=== PATIENT | female | born 1960 | race Caucasian/White ===

== ENCOUNTER 2023-04-26 13:14 | Outpatient (OUT) | payer OTHER, SELFPAY ==
--- NOTE | 2023-04-26 13:17 | MM_ITS ---
Patient Name: STEFANIE ALARCON MR#: [id number] : 1960 Exam Date: 04/26/2023 Ordering Doctor: DR Baldemar Barger . RADIOLOGY REPORT PROCEDURE: MM TOMOSYNTHESIS SCREENING BI COMPARISON: MG MAMM SCREEN 3D BERNARDA CAD, 04/03/2021. MG MAMM SCREEN 3D BERNARDA CAD, 04/22/2022. INDICATIONS: Screening Calculator Name NCI Breast Cancer Risk Assessment Tool 5 Year Breast Cancer Risk 1.50% Lifetime Breast Cancer Risk 7.20% Personal Breast Cancer No Personal Ovarian Cancer No Treatments None Family Cancers Grandmother-maternal with ?melanoma cancer at age ~45. LOCATION: [facility] BREAST COMPOSITION: Heterogeneously dense,which may obscure small masses. FINDINGS: DIAGNOSTIC CATEGORY 1--NEGATIVE. NO CHANGE FROM COMPARISON ASSESSMENT. Scattered benign-appearing calcifications are present. RIGHT BREAST: No significant suspicious finding. LEFT BREAST: No significant suspicious finding. RECOMMENDATIONS: ROUTINE MAMMOGRAM AND CLINICAL EVALUATION IN 12 MONTHS. PLEASE NOTE: A NORMAL MAMMOGRAM DOES NOT EXCLUDE THE POSSIBILITY OF BREAST CANCER. A CLINICALLY SUSPICIOUS PALPABLE LUMP SHOULD BE BIOPSIED. Dictated by: Emmanuel Calderon MD on 04/26/2023 at 14:52 Approved by: Emmanuel Calderon MD on 04/26/2023 at 14:59
== END 2023-04-26 13:15 | disposition home or self-care (01) ==
LOC: MAMMO 13:14
PROVIDERS: Visit Provider Obstetrics & Gynecology
DX: Z12.31 Encounter for screening mammogram for malignant neoplasm of breast (principal); Z80.8 Family history of malignant neoplasm of other organs or systems
CPT/HCPCS: 77063; 77067

== ENCOUNTER 2023-07-28 20:13 | Outpatient (REF) | payer OTHER, SELFPAY ==
[2023-08-01 22:06] LABS: Age Gdln ACOG Testing Note (.); HPV Aptima Negative (Negative); IGP, Aptima HPV, rfx 16/18,45 Note (.)
== END 2023-07-28 20:14 | disposition home or self-care (01) ==
LOC: LAB 20:13
PROVIDERS: Visit Provider Obstetrics & Gynecology
DX: Z01.419 Encounter for gynecological examination (general) (routine) without abnormal findings (principal)
CPT/HCPCS: 87624; 88175

== ENCOUNTER 2024-04-26 06:55 | Outpatient (OUT) | payer OTHER, SELFPAY ==
--- NOTE | 2024-04-26 | MM_ITS ---
Patient Name: STEFANIE ALARCON MR#: [id number] : 1960 Exam Date: 04/26/2024 Ordering Doctor: DR Baldemar Barger . RADIOLOGY REPORT PROCEDURE: MM TOMOSYNTHESIS SCREENING BI COMPARISON: MM TOMOSYNTHESIS SCREENING BI, 04/26/2023. MG MAMM SCREEN 3D BERNARDA CAD, 04/22/2022. MG MAMM SCREEN 3D BERNARDA CAD, 04/03/2021. MG MAMM BERNARDA SCRN W CAD DIG, 10/18/2012. INDICATIONS: Screening for malignant neoplasm Calculator Name NCI Breast Cancer Risk Assessment Tool 5 Year Breast Cancer Risk 1.50% Lifetime Breast Cancer Risk 7.00% Personal Breast Cancer No Personal Ovarian Cancer No Treatments None Family Cancers Grandmother-maternal with ?melanoma cancer at age ~45. LOCATION: [facility] BREAST COMPOSITION: There are scattered areas of fibroglandular density. FINDINGS: DIAGNOSTIC CATEGORY 1--NEGATIVE. RIGHT BREAST: No significant suspicious finding. LEFT BREAST: No significant suspicious finding. RECOMMENDATIONS: ROUTINE MAMMOGRAM AND CLINICAL EVALUATION IN 12 MONTHS. PLEASE NOTE: A NORMAL MAMMOGRAM DOES NOT EXCLUDE THE POSSIBILITY OF BREAST CANCER. A CLINICALLY SUSPICIOUS PALPABLE LUMP SHOULD BE BIOPSIED. Dictated by: Nixon Simpson DO on 04/26/2024 at 14:01 Approved by: Nixon Simpson DO on 04/26/2024 at 14:02
--- OUTSIDE RECORDS SUMMARY | 2024-04-26 06:58 | XMS_ITS | CCD ---
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 Oswestry Score: 42 Lifting: Aggravating PM Oswestry Score Interpretation: 41% to 60% Severe Disability: Pain remains the main problem in this group but activities of daily living are affected. These patients require a detailed investigation. Lying: Aggravating Massage: Alleviating Pushing/Pulling: Aggravating Sitting: Alleviating Standing: Aggravating Walking: Aggravating Sensory impairment location: numbnesss and tingling in left mcclellan Pain since last visit: Improved Procedure 1: Radiofrequency Ablation Procedure Date 1: 08/05/23 Procedure Comments 1: Bilateral L4-5, L5-S1 radiofrequency ablation Pain Improvement 1: Significant (70-100% relief) Pain Improvement Comments 1: 80% relief x2 weeks in lower back Date Tens: current Frequency TENS: prn Effective TENS: minimal help-low back Comments TENS: home unit Date Chiropractor: hx Date PT: hx Date Injections: PRN Effective Injections: sig relief x2 weeks Comments Injections: Bilateral L4-5, L5-S1 radiofrequency ablation Date Surgery: 10/2022 Frequency Surgery: x1 Effective Surgery: right THR Comments Other: HEP-stretching Recent testing: No Loss of bladder/bowel: Denies Demeanor: Pleasant Distress: None Appearance: Appropriate Cognitive impairment: No Feels safe at home: Yes Suicidal/homicidal ideation: No Review of Systems A review of systems was conducted and noted to be negative to the patients presenting complaint unless delineated in HPI. Full details are available on form PM-82 completed by the patient and added to the record on today?s date Denies loss of control of bowel and bladder or saddle paresthesia. Denies suicidal ideation or plan Physical Exam Vitals & Measurements HR: 73 (Peripheral) RR: 16 BP: 145/94 HT: 173 cm General -Appears stated age. No apparent distress. Psychological - Normal mood and affect. HEENT - Normocephalic/Atrau matic Neurologic-alert and oriented x4 Respiratory - No obvious distress, No shortness of breath. Sacroiliac-tenderne ss to palpation is noted over the right sacroiliac joint. Kem's sign and thigh thrust are positive and do appear to be concordant with one of patient's main pain generators. Additional Vitals Repeat Systolic Blood Pressure: 142 mmHg High Repeat Diastolic Blood Pressure: 88 mmHg BP Position/Location: Sitting, Left arm BP Position/Location 2: Sitting, Right arm Assessment/Plan Low back pain Lumbosacral spondylosis Patient has chronic low back pain secondary to lumbosacral spondylosis. Patient reports improvement of lumbar pain following lumbar RFA but continues with residual low back pain consistent with sacroiliac joint pain Sacroiliac joint pain Debilitating lumbosacral pain, markedly impairing function with symptomatology that reproduces with Gaenslens maneuver as well as Sam's testing. For symptomatology that re-creates with a sacral iliac joint palpation their candidacy is formally established for a diagnostic and potentially therapeutic intervention. Patient will be scheduled for bilateral sacroiliac joint injection under fluoroscopic guidance and attempts to palliate low back pain Medic (more content not included)... Normal [facility] Pain Management Office/Clini c Noteon 06-14-2023 Pain Management Office/Clinic Note Chief Complaint neck & low back pain History of Present Illness Patient kindly referred to our office for evaluation regarding chronic low back pain. Patient does report some tingling in her left lateral calf. Patient lumbar spine MRI and x-ray December 2021 and was under the care of a pain specialist in [place]. Patient was seen for right hip pain and subsequently has underwent right total hip replacement 2022. Patient reports her low back pain is her most significant concern on today's encounter Patient has engaged in a 6 week course of provider directed, home based physiological therapies within the last 3 months. In addition, a six-week trial of activity modification has failed to give reprieve. Patient has also failed to respond optimally to oral analgesic regimen Opioid Risk Assessment Oswestry Disability Form AM Behavior: Same Family History of Substance Abuse: None PM Pain Intensity: The pain is very severe at the moment Day Progresses Behavior: Same Personal History of Substance Abuse: None PM Personal Care: I can look after myself without causing extra pain PM Behavior: Same Age Between 16 and 45: No PM Sitting: Pain prevents me from sitting more than 10 minutes Timing of onset: gradually History of Preadolescent Sexual Abuse: No PM Pain Lifting: Pain prevents me from lifting heavy weights, but I can manage light to medium weights if they are convieniently positioned Related injury/event: none Mental Health Condition: No PM Walking: Pain prevents me from walking more than 1 mile Details of onset: Pain for years Depression: No PM Standing: Pain prevents me from standing for more than 10 minutes Past treatment: hx PThx chiropractorMDP,Tra madl, Celebrex-no helpFlexeril-just startedNabumetone-h elped for a little bit then stopped helpingPercocet-hel ped Total Opioid Risk Score: 0 PM Sleeping: Because of pain I have less than 4 hours of sleep Pain location and laterality: neck & low back pain Total Score Risk Category: Low risk PM Sex Life: My sex life is normal and causes no pain/NA Pain quality: Aching, Dull, Sharp PM Social Life: My social life is normal and give me no extra pain Pain Pattern: Constant PM Traveling: Pain is bad, but I manage journeys over 2 hours Pain rate at rest: 8 PM Oswestry Score: 42 Pain rate with activity: 10 PM Oswestry Score Interpretation: 41% to 60% Severe Disability: Pain remains the main problem in this group but activities of daily living are affected. These patients require a detailed investigation. Bending: Aggravating Heat: Alleviating Lifting: Aggravating Lying: Aggravating Pushing/Pulling: Aggravating Sitting: Alleviating Standing: Aggravating Walking: Aggravating Sensory impairment location: tingling at times in left lower leg Date Tens: current Frequency TENS: prn Effective TENS: minimal help-low back Date Chiropractor: hx Date PT: hx Comments PT: HEP-stretching Date Injections: hx Frequency Injections: x3 Effective Injections: no help Comments Injections: PM De La Torre-Dr Reina & Dr. Mosquera Date Surgery: 10/2022 Frequency Surgery: x1 Effective Surgery: right THR Recent testing: No Loss of bladder/bowel: Denies Demeanor: Pleasant Distress: None Appearance: Appropriate Cognitive impairment: No Feels safe at home: Yes Suicidal/homicidal ideation: No Family History of Substance Abuse: None Personal History of Substance Abuse: None Age Between 16 and 45: No History of Preadolescent Sexual Abuse: No Mental Health Condition: No Depression: No Total Opioid Risk Score: 0 Total Score Risk Category: Low risk Review of Systems A review of systems was conducted and noted to be negative to the patients presenting complaint unless delineated in HPI. Full details are available on form PM-82 completed by the patient and added to the record on today?s date Denies loss of control of bowel and bladder or saddle paresthesia. Denies suicidal ideation or plan Physical Exam Vitals & Measurements HR: 82 (Peripheral) RR: 16 BP: 148/91 HT: 172 cm General -Appears stated age. No apparent distress. Psychological - Normal mood and affect. HEENT - Normocephalic/Atrau matic Neurologic-alert and oriented x4 Respiratory - No obvious distress, No shortness of breath. Focus exam- is able to transition from sitting to standing without difficulty walks with a nonantalgic gait. Motor strength 5/5 in all areas assessed in the bilateral lower extremities. Sensory testing intact L1 through S1. Patient does report an increase in low back pain with lumbar facet loading maneuvers, concordant with pain symptoms, which localizes approximate L3 4, L4 5 and L5-S1 bilaterally Additional Vitals BP Position/Location: Sitting Assessment/Plan Low back pain Lumbosacral spondylosis Evaluated today for ongoing pain secondary to lumbar spondylosis. Patient's pain has failed to respond to conservative measures including life-style mo (more content not included)... Normal [facility] CT ABDOMEN PELVIS WO CONTRAS Ton 11-01-2022 CT ABDOMEN PELVIS WO CONTRAST EXAMINATION: STONE PROTOCOL CT OF THE ABDOMEN AND PELVIS 10/31/2022 7:24 pm TECHNIQUE: CT of the abdomen and pelvis was performed without the administration of intravenous contrast. Multiplanar reformatted images are provided for review. Automated exposure control, iterative reconstruction, and/or weight based adjustment of the mA/kV was utilized to reduce the radiation dose to as low as reasonably achievable. COMPARISON: None HISTORY: ORDERING SYSTEM PROVIDED HISTORY: Rule out right kidney stone TECHNOLOGIST PROVIDED HISTORY: Rule out right kidney stone Decision Support Exception - unselect if not a suspected or confirmed emergency medical condition->Emergenc y Medical Condition (MA) FINDINGS: LOWER CHEST: Visualized portion of the lower chest demonstrates no acute abnormality. KIDNEYS AND URINARY TRACT: Right obstructive uropathy with right hydronephrosis, perinephric stranding and right hydroureter leading to a distal right ureteric stone measuring 5 mm. Kidney demonstrates no acute abnormality. ORGANS: Visualized portions of the unenhanced liver, spleen, pancreas, and adrenal glands demonstrate no acute abnormality. Status post cholecystectomy. GI/BOWEL: No bowel obstruction. No evidence of acute appendicitis. Mild constipation. PELVIS: The bladder and pelvic organs are unremarkable. Postsurgical changes in the region of the right hip. There is some soft tissue fluid with some air bubbles. PERITONEUM/RETROPER ITONEUM: No lymphadenopathy is noted. BONES/SOFT TISSUES: Status post right hip replacement which appears well aligned. Postoperative soft tissue fluid with air needs to be monitored for possible infection. IMPRESSION: 1. Right obstructive uropathy related to a 5 mm stone at the right UV junction. 2. Status post right hip surgery with soft tissue fluid and air bubbles which may be postsurgical however, monitoring for possible infection should be considered. 3. Status post cholecystectomy. No acute gastrointestinal abnormality. Mild constipation. Interpreted by: Kendra Choi MD Signed by: Kendra Choi MD 10/31/22 Final result Normal [facility] Basic Metabolic Profon 10-31 Anion gap [Moles/Vol] 10 mmol/L Normal 9- [facility] Comment on above: Performed By: #### C DP, BMP #### [facility] [address] [place] [address] Sports Medicine Coordinator: Juan Freitas MD BUN/CRE Ratio 20 Normal 9- [facility] Comment on above: Performed By: #### C DP, BMP #### [facility] [address] [place], [place] [id number] Sports Medicine Coordinator: Juan Freitas MD Calcium [Mass/Vol] 9.4 mg/dL Normal 8.6-10.4 [facility] Comment on above: Performed By: #### C DP, BMP #### [facility] [address] [place], [place] [id number] Sports Medicine Coordinator: Juan Freitas MD Chloride [Moles/Vol] 103 mmol/L Normal 98-107 [facility] Comment on above: Performed By: #### C DP, BMP #### [facility] [address] [place], [place] [id number] Sports Medicine Coordinator: Juan Freitas MD CO2 [Moles/Vol] 22 mmol/L Normal 20-31 [facility] Comment on above: Performed By: #### C DP, BMP #### [facility] [address] [place] [address] Sports Medicine Coordinator: Juan Freitas MD Creatinine [Mass/Vol] 0.8 mg/dL Normal 0.5-0.9 [facility] Comment on above: Performed By: #### C DP, BMP #### [facility] [address] [place] [address] Sports Medicine Coordinator: Juan Freitas MD GFR/1.73 sq M.predicted among non-blacks MDRD (S/P/Bld) [Vol rate/Area] mL/min/{1.73_m2} Normal >60 [facility] Comment on above: Result Comment: These results are not intended for use in patients <18 years of age. eGFR results are calculated without a race factor using the 2020 CKD-EPI equation. Careful clinical correlation is recommended, particularly when comparing to results calculated using previous equations. The CKD-EPI equation is less accurate in patients with extremes of muscle mass, extra-renal metabolism of creatine, excessive creatine ingestion, or following therapy that affects renal tubular secretion. Performed By: #### C DP, BMP #### [facility] [address] [place] [address] Sports Medicine Coordinator: Juan Freitas MD Glucose [Mass/Vol] 154 mg/dL High 70-99 [facility] Comment on above: Performed By: #### C DP, BMP #### [facility] [address] [place] [address] Sports Medicine Coordinator: Juan Freitas MD Potassium [Moles/Vol] 4.4 mmol/L Normal 3.7-5.3 [facility] Comment on above: Performed By: #### C DP, BMP #### [facility] [address] [place] [address] Sports Medicine Coordinator: Juan Freitas MD Sodium [Moles/Vol] 135 mmol/L Normal 135-144 [facility] Comment on above: Performed By: #### C DP, BMP #### [facility] [address] [place] [address] Sports Medicine Coordinator: Juan Freitas MD Urea nitrogen [Mass/Vol] 16 mg/dL Normal 8-23 [facility] Comment on above: Performed By: #### C DP, BMP #### [facility] [address] [place], [place] [address] Sports Medicine Coordinator: Juan Freitas MD CBC with Diffon 10-31-2022 Abs. Basophil <0.03 Normal 0.00-0.20 [facility] Comment on above: Performed By: #### C DP, BMP #### [facility] [address] [place] [address] Sports Medicine Coordinator: Juan Freitas MD Abs.Imm.Granulocyte 0.04 k/uL Normal 0.00-0.30 [facility] Comment on above: Performed By: #### C DP, BMP #### [facility] [address] [place] [address] Sports Medicine Coordinator: Juan Freitas MD Abs.Neutrophil (Seg) 5.50 k/uL Normal 1.50-8.10 [facility] Comment on above: Performed By: #### C DP, BMP #### [facility] [address] [place] [address] Sports Medicine Coordinator: Juan Freitas MD Basophils/100 WBC (Bld) 0 % Normal 0-2 [facility] Comment on above: Performed By: #### C DP, BMP #### [address] [place], [place] [address] Sports Medicine Coordinator: Juan Freitas MD Eosinophils (Bld) [#/Vol] 0.04 10*3/uL Normal 0.00-0.44 [facility] Comment on above: Performed By: #### C DP, BMP #### [facility] [address] [place], [facility]83 Sports Medicine Coordinator: Juan Freitas MD Eosinophils/100 WBC (Bld) 1 % Normal 1-4 [facility] Comment on above: Performed By: #### C DP, BMP #### [facility] [address] [place], [facility]83 Sports Medicine Coordinator: Juan Freitas MD Erythrocyte distribution width (RBC) [Ratio] 12.4 % Normal 11.8-14.4 [facility] Comment on above: Performed By: #### C DP, BMP #### [address] [place], [place] [id number] Sports Medicine Coordinator: Juan Freitas MD Hematocrit (Bld) [Volume fraction] 32.6 % Low 36.3-47.1 [facility] Comment on above: Performed By: #### C DP, BMP #### [address] [place], [facility]83 Sports Medicine Coordinator: Juan Freitas MD Hemoglobin (Bld) [Mass/Vol] 10.9 g/dL Low 11.9-15.1 [facility] Comment on above: Performed By: #### C DP, BMP #### [address] [place], [facility]83 Sports Medicine Coordinator: Juan Freitas MD Immature granulocytes/100 WBC (Bld) 1 % High 0 [facility] Comment on above: Performed By: #### C DP, BMP #### [address] [place], [place] [address] Sports Medicine Coordinator: Juan Freitas MD Lymphocytes (Bld) [#/Vol] 0.96 10*3/uL Low 1.10-3.70 [facility] Comment on above: Performed By: #### C DP, BMP #### [facility] [address] [place] [address] [place], [facility]83 Sports Medicine Coordinator: Juan Freitas MD Lymphocytes/100 WBC (Bld) 14 % Low 24-43 [facility] Comment on above: Performed By: #### C DP, BMP #### [address] [place] [address] Sports Medicine Coordinator: Juan Freitas MD MCH (RBC) [Entitic mass] 30.1 pg Normal 25.2-33.5 [facility] Comment on above: Performed By: #### C DP, BMP #### [facility] [address] [place], [place] [id number] Sports Medicine Coordinator: Juan Freitas MD MCHC (RBC) [Mass/Vol] 33.4 g/dL Normal 28.4-34.8 [facility] Comment on above: Performed By: #### C DP, BMP #### [facility] [address] [place], [facility]83 Sports Medicine Coordinator: Juan Freitas MD MCV (RBC) [Entitic vol] 90.1 fL Normal 82.6-102.9 [facility] Comment on above: Performed By: #### C DP, BMP #### [address] [place] [id number] Sports Medicine Coordinator: Juan Freitas MD Monocytes (Bld) [#/Vol] 0.43 10*3/uL Normal 0.10-1.20 [facility] Comment on above: Performed By: #### C DP, BMP #### [address] [place], [place] [address] Sports Medicine Coordinator: Juan Freitas MD Monocytes/100 WBC (Bld) 6 % Normal 3-12 [facility] Comment on above: Performed By: #### C DP, BMP #### [address] [place], [place] [address] Sports Medicine Coordinator: Juan Freitas MD Neutrophil (Seg) 78 % High 36-65 [facility] Comment on above: Performed By: #### C DP, BMP #### [facility] [address] [place] [id number] Sports Medicine Coordinator: Juan Freitas MD NRBC Automated 0.0 per 100 WBC Normal 0.0 [facility] Comment on above: Performed By: #### C DP, BMP #### [facility] [address] [place], [facility]83 Sports Medicine Coordinator: Juan Freitas MD Platelet mean volume (Bld) [Entitic vol] 9.2 fL Normal 8.1-13.5 [facility] Comment on above: Performed By: #### C DP, BMP #### [facility] [address] [place], [place] [id number] Sports Medicine Coordinator: Juan Freitas MD Platelets (Bld) [#/Vol] 314 10*3/uL Normal 138-453 [facility] Comment on above: Performed By: #### C DP, BMP #### [facility] [address] [place], [place] [id number] Sports Medicine Coordinator: Juan Freitas MD RBC (Bld) [#/Vol] 3.62 10*6/uL Low 3.95-5.11 [facility] Comment on above: Performed By: #### C DP, BMP #### [facility] [address] [place], [facility]83 Sports Medicine Coordinator: Juan Freitas MD WBC (Bld) [#/Vol] 7.0 10*3/uL Normal 3.5-11.3 [facility] Comment on above: Performed By: #### C DP, BMP #### [address] [place], [place] [id number] Sports Medicine Coordinator: Juan Freitas MD Urinalysis w/ Microon 2022 Bilirubin, SemiQt,Ur Negative Normal NEG [facility] Comment on above: Performed By: #### U AMIC #### [facility] [address] [place], [place] [address] Sports Medicine Coordinator: Juan Freitas MD Blood, Urine TRACE Abnormal NEG [facility] Comment on above: Performed By: #### U AMIC #### [facility] [address] [place], [place] [id number] Sports Medicine Coordinator: Juan Freitas MD Clarity (U) Clear Normal CLEAR [facility] Comment on above: Performed By: #### U AMIC #### [facility] [address] [place], [place] [id number] Sports Medicine Coordinator: Juan Freitas MD Color (U) Yellow Normal YEL [facility] Comment on above: Performed By: #### U AMIC #### [facility] [address] [place], [place] [address] Sports Medicine Coordinator: Juan Freitas MD Epithelial cells LM Ql (Urine sed) None Normal 0-25 [facility] Comment on above: Performed By: #### U AMIC #### [facility] [address] [place], [place] [id number] Sports Medicine Coordinator: Juan Freitas MD Glucose Ql (U) Negative Normal NEG [facility] Comment on above: Performed By: #### U AMIC #### [facility] [address] [place] [address] [place], [place] [id number] Sports Medicine Coordinator: Juan Freitas MD Ketones Ql (U) Negative Normal NEG [facility] Comment on above: Performed By: #### U AMIC #### [facility] [address] [place] [address] Dr[place], [place] [id number] Sports Medicine Coordinator: Juan Freitas MD Leukocyte esterase Test strip Ql (U) Negative Normal NEG [facility] Comment on above: Performed By: #### U AMIC #### [facility] [address] [place] [address] Dr[place], [place] [id number] Sports Medicine Coordinator: Juan Freitas MD Nitrite,Ur Negative Normal NEG [facility] Comment on above: Performed By: #### U AMIC #### [facility] [address] [place] [address] [place] [address] Sports Medicine Coordinator: Juan Freitas MD PH,Ur 7.0 Normal 5.0-9.0 [facility] Comment on above: Performed By: #### U AMIC #### [facility] [address] [place], [place] [address] Sports Medicine Coordinator: Juan Freitas MD Protein Ql (U) Negative Normal NEG [facility] Comment on above: Performed By: #### U AMIC #### [facility] [address] [place], [place] [address]83 Sports Medicine Coordinator: Juan Freitas MD Spec. [place],Ur 1.010 Normal 1.010-1.020 [facility] Comment on above: Performed By: #### U AMIC #### [facility] [address] [place], [place] [phone] Sports Medicine Coordinator: Juan Freitas MD Urine RBC's 0 TO 2 Normal 0-2 [facility] Comment on above: Performed By: #### U AMIC #### [facility] [address] [place] [address] Sports Medicine Coordinator: Juan Freitas MD Urine WBC's None Normal 0-5 [facility] Comment on above: Performed By: #### U AMIC #### [facility] [address] [place] [address] Dr[place], [place] [phone] Sports Medicine Coordinator: Juan Freitas MD Urobilinogen,Ur Normal Normal 0.0-1.0 [facility] Comment on above: Performed By: #### U AMIC #### [facility] [address] [place] [address] Dr[place], [place] [id number] Sports Medicine Coordinator: Juan Freitas MD CT HIP RIGHT WO CONTRASTon 0 09-19-2022 CT HIP RIGHT WO CONTRAST EXAMINATION: CT OF THE RIGHT HIP WITHOUT CONTRAST 09/19/2022 11:43 am TECHNIQUE: CT of the right hip was performed without the administration of intravenous contrast. Multiplanar reformatted images are provided for review. Automated exposure control, iterative reconstruction, and/or weight based adjustment of the mA/kV was utilized to reduce the radiation dose to as low as reasonably achievable. COMPARISON: Radiographs dated 07/01/2022. HISTORY ORDERING SYSTEM PROVIDED HISTORY: pain TECHNOLOGIST PROVIDED HISTORY: pain Decision Support Exception - unselect if not a suspected or confirmed emergency medical condition->Emergenc y Medical Condition (MA) FINDINGS: Bones: No evidence of acute fracture or dislocation. No aggressive appearing osseous abnormality or periostitis. Soft Tissue: No significant soft tissue edema or fluid collections. Urinary bladder is within normal limits. No free fluid in the pelvis. Uterus is surgically absent. Joint: No evidence of joint effusion. There is moderate joint space narrowing and marginal spurring at bilateral hips, slightly more so on the right. There are moderate degenerative changes at the pubic symphysis. Moderate disc space narrowing and facet arthropathy at the visualized lower lumbar spine. IMPRESSION: 1. No acute osseous abnormality in the pelvis or right hip. 2. Moderate degenerative changes at bilateral hips. Interpreted by: Andreia Samson DO Signed by: Andreia Samson DO 09/19/22 Final result Normal [facility] XR HAND RIGHT (MIN 3 VIEWS)o n 09-19-2022 XR HAND RIGHT (MIN 3 VIEWS) EXAMINATION: THREE XRAY VIEWS OF THE RIGHT HAND 09/19/2022 11:16 am COMPARISON: None. HISTORY: ORDERING SYSTEM PROVIDED HISTORY: fall TECHNOLOGIST PROVIDED HISTORY: fall FINDINGS: Joint spaces are maintained. Osteophyte formation subjacent multiple interphalangeal joints. No acute fracture or dislocation identified. No soft tissue abnormality identified. IMPRESSION: Osteoarthrosis. No acute osseous abnormality identified. Interpreted by: Jack Pittman MD Signed by: Jack Pittman MD 09/19/22 Final result Normal [facility] PAP ACOG PANEL 2: 30 to 65on 06-15-2022 . . Normal [facility] Comment on above: Result Comment: Perf ormed at: [facility] Performed By: #### [id number] #### [facility] [address] [address] [address] Anamika Al Age Gdln ACOG Testing 30-65 Normal [facility] Comment on above: Performed By: #### [id number] #### [facility] [address] [place], [place] [address] Dr. Anamika Al DIAGNOSIS: Comment Normal [facility] Comment on above: Result Comment: NEGA TIVE FOR INTRAEPITHELIAL LESION OR MALIGNANCY. CELLULAR CHANGES ASSOCIATED WITH ATROPHY ARE PRESENT. Performed at: [facility] Performed By: #### [id number] #### [facility] [address] [address] [address] Anamika Al HPV Aptima Negative Normal Negative [facility] Comment on above: Result Comment: This nucleic acid amplification test detects fourteen high-risk HPV types (16,18,31,33,35,39,45,51,52,56,58,59,66,68) without differentiation. Performed at: =G Performed By: #### [id number] #### [facility] [address] [address] [address] Anamika Al HPV Genotype Reflex Comment Normal [facility] Comment on above: Result Comment: Crit eria not met, HPV Genotype not performed. Performed at: [facility] Performed By: #### [id number] #### [facility] [address] [place] [address] Dr. Anamika Al Methodology: Comment Normal [facility] Comment on above: Result Comment: This liquid based ThinPrep(R) pap test was screened with the use of an image guided system. Performed at: [facility] Performed By: #### [id number] #### [facility] [address] [place] [address] Dr. Anamika Al Note: Comment Normal [facility] Comment on above: Result Comment: The Pap smear is a screening test designed to aid in the detection of premalignant and malignant conditions of the uterine cervix. It is not a diagnostic procedure and should not be used as the sole means of detecting cervical cancer. Both false-positive and false-negative reports do occur. . Performed at: [facility] Performed By: #### [id number] #### [facility] [address] [place] [address] Dr. Anamika Al Performed by: Comment Normal [facility] Comment on above: Result Comment: Silvana Jenkins Calculator Operator (ASCP) Performed at: [facility] Performed By: #### [id number] #### [facility] [address] [place] [address] Dr. Anamika Al Specimen adequacy: Comment Normal [facility] Comment on above: Result Comment: Sati sfactory for evaluation. Endocervical component may not be distinguished in cases of atrophy. Areas of partially obscuring blood are present. Performed at: [facility] Performed By: #### [id number] #### [facility] [address] [place] [address] Dr. Anamika Al XR DEXA BONE DENSITYon 06-08 XR DEXA BONE DENSITY EXAMINATION: XR DEXA BONE DENSITY, 06/08/2022 1:18 PM EDT HISTORY: Screening for osteoporosis COMPARISON: DEXA bone densitometry 03/17/2019 TECHNIQUE: Dual-energy X-ray absorptiometry (DEXA) bone density study performed for the axial skeleton. FINDINGS: SPINE ANALYSIS: Average bone mineral density is 1.161 g/cm2. T-score (standard deviation relative to young adult mean): -0.2 . -7.3% change since prior study. HIP ANALYSIS: Lowest bone mineral density is within the right femoral trochanter, 0.708 g/cm2. T-score (standard deviation relative to young adult mean): -1.2 . -9.6% change since prior study. IMPRESSION: World [employer] Organization Classification: Osteopenia - Moderate Fracture Risk Electronically authenticated by: ZACARIAS DOTSON Date: 2022-06-08 15:48 Normal [facility] MAMM SCREEN 3D BERNARDA CADon 04-22-2022 MG MAMM SCREEN 3D BERNARDA CAD Patient: SUSY KOHLER Exam Date: 04/22/2022 : 1960 Gender:F Ordering : DR SVITLANA BAILON . Admission #: [id number] Family : Order #: [id number] CLICK HERE TO VIEW EXAM RADIOLOGY REPORT PROCEDURE: MAMMOGRAM SCREENING 3D BILATERAL CAD COMPARISON: MG MAMM SCREEN BERNARDA W CAD, 04/02/2020. MG MAMM SCREEN 3D BERNARDA CAD, 04/03/2021. INDICATIONS: Screening mammography Calculator Name NCI Breast Cancer Risk Assessment Tool 5 Year Breast Cancer Risk 1.50% Lifetime Breast Cancer Risk 7.40% Personal Breast Cancer No Personal Ovarian Cancer No Treatments None Family Cancers Grandmother-materna l with ?melanoma cancer at age 45. LOCATION: [facility] BREAST COMPOSITION: Heterogeneously dense,which may obscure small masses. FINDINGS: DIAGNOSTIC CATEGORY 1--NEGATIVE. NO CHANGE FROM COMPARISON ASSESSMENT. Scattered benign-appearing nodules are present. Scattered benign-appearing calcifications are present. RIGHT BREAST: No significant suspicious finding. LEFT BREAST: No significant suspicious finding. RECOMMENDATIONS: ROUTINE MAMMOGRAM AND CLINICAL EVALUATION IN 12 MONTHS. PLEASE NOTE: A NORMAL MAMMOGRAM DOES NOT EXCLUDE THE POSSIBILITY OF BREAST CANCER. A CLINICALLY SUSPICIOUS PALPABLE LUMP SHOULD BE BIOPSIED. Dictated by: Juan Calderon MD on 04/22/2022 at 11:33 Approved by: Juan Calderon MD on 04/22/2022 at 11:34 Normal [facility] Strep Gr A Direct Agon 04-06 Strep Gr A Direct Ag Negative Normal [facility] Comment on above: Result Comment: Rapi d Strep A negative. A negative Rapid Group A Strep Screen result does not rule out the possibility of Group A Streptococci in the specimen. A Group A Strep DNA test is available upon request. Performed By: #### R GPA #### [facility] [address] [place] [place] [address] Sports Medicine Coordinator: Juan Freitas MD Source .THROAT SWAB Normal [facility] Comment on above: Performed By: #### R GPA #### [facility] [address] [place] [address] Sports Medicine Coordinator: Juan Freitas MD Strep Screen Group A Throato n 04-06-2022 S. pyogenes Ag Ql (Throat) Negative NEGATIVE [facility] Comment on above: Rapid Strep A negati ve. A negative Rapid Group A Strep Screen result does not rule out the possibility of Group A Streptococci in the specimen. A Group A Strep DNA test is available upon request. Source .THROAT SWAB [facility] Aldolaseon 10-15-2021 Aldolase 4.2 U/L Normal 3.3-10.3 [facility] Comment on above: Result Comment: Perf ormed at: - [facility] [address] [id number] Sports Medicine Coordinator: Lino Main PhD, Phone: [phone] PERFORMED BY: [address] [address] [place] [address] PATHOLOGIST DIETITIAN RESEARCH ZENAIDA SHERMAN M.D. Performed By: #### A LDOLASE #### [facility] , Basophils Auto (Bld) [#/Vol] Ordered By: Quedionna Silva on 10-15-2021 Basophils (Bld) [#/Vol] 0.1 10*3/uL 0.0-0.2 [facility] Basophils/100 WBC Auto (Bld) Ordered By: Que Silva on 10-15-2021 Basophils/100 WBC (Bld) 0.9 % . F [facility] Blood hemoglobin measurement (mass/volume)Ordered By: Que Silva on 10-15-2021 Hemoglobin (Bld) [Mass/Vol] 14.0 g/dL 11.8-15.4 [facility] Blood leukocytes automated c ount (number/volume)Ordered By: Que Silva on 10-15-2021 WBC (Bld) [#/Vol] 6.9 10*3/uL 4.5-11.[address] [facility] Body fluid albumin measureme nt (mass/volume)Ordered By: Que Silva on 10-15-2021 Albumin (Body fld) [Mass/Vol] 4.1 g/dL 3.2-5.5 [facility] C reactive protein [Mass/vol ume] in Serum or PlasmaOrdered By: Que Silva on 10-15-2021 CRP [Mass/Vol] 0.5 mg/dL 0.0-1.0 [facility] C-Reactive Proteinon 022 C-Reactive Protein 0.5 mg/dL Normal 0.0-1.[address] [facility] Comment on above: Performed By: #### C BC, CK, TSH3, CMP, ESR, CRP, T4F #### [facility] [address] Complete Blood Count Auto Di ffon 10-15-2021 Basophils (Bld) [#/Vol] 0.1 10*3/uL Normal 0.0-0.2 [facility] Comment on above: Performed By: #### C BC, CK, TSH3, CMP, ESR, CRP, T4F #### [facility] [address] Basophils/100 WBC (Bld) 0.9 % Normal . [facility] Comment on above: Performed By: #### C BC, CK, TSH3, CMP, ESR, CRP, T4F #### [address] Eosinophils (Bld) [#/Vol] 0.0 10*3/uL Normal 0.0-0.45 [facility] Comment on above: Performed By: #### C BC, CK, TSH3, CMP, ESR, CRP, T4F #### [address] Eosinophils/100 WBC (Bld) 0.4 % Normal . [facility] Comment on above: Performed By: #### C BC, CK, TSH3, CMP, ESR, CRP, T4F #### [address] Erythrocyte distribution width (RBC) [Ratio] 14.1 % Normal 11.9-15.3 [facility] Comment on above: Performed By: #### C BC, CK, TSH3, CMP, ESR, CRP, T4F #### [address] Hematocrit (Bld) [Volume fraction] 42.7 % Normal 34.0-46.4 [facility] Comment on above: Performed By: #### C BC, CK, TSH3, CMP, ESR, CRP, T4F #### [address] Hemoglobin (Bld) [Mass/Vol] 14.0 g/dL Normal 11.8-15.4 [facility] Comment on above: Performed By: #### C BC, CK, TSH3, CMP, ESR, CRP, T4F #### [address] Lymphocytes (Bld) [#/Vol] 1.9 10*3/uL Normal 1.00-4.8 [facility] Comment on above: Performed By: #### C BC, CK, TSH3, CMP, ESR, CRP, T4F #### [address] Lymphocytes/100 WBC (Bld) 28.0 % Normal . [facility] Comment on above: Performed By: #### C BC, CK, TSH3, CMP, ESR, CRP, T4F #### [address] MCH (RBC) [Entitic mass] 30.2 pg Normal 24.7-34.3 [facility] Comment on above: Performed By: #### C BC, CK, TSH3, CMP, ESR, CRP, T4F #### [address] MCV (RBC) [Entitic vol] 92.2 fL Normal 80-100 [facility] Comment on above: Performed By: #### C BC, CK, TSH3, CMP, ESR, CRP, T4F #### [address] Mean Corpuscular HGB Conc 32.8 g/dL Normal 32.0-35.0 [facility] Comment on above: Performed By: #### C BC, CK, TSH3, CMP, ESR, CRP, T4F #### [address] Monocytes (Bld) [#/Vol] 0.5 10*3/uL Normal 0.0-0.8 [facility] Comment on above: Performed By: #### C BC, CK, TSH3, CMP, ESR, CRP, T4F #### [address] Monocytes/100 WBC (Bld) 6.7 % Normal . [facility] Comment on above: Performed By: #### C BC, CK, TSH3, CMP, ESR, CRP, T4F #### [address] Neutrophils (Bld) [#/Vol] 4.4 10*3/uL Normal 1.8-7.7 [facility] Comment on above: Performed By: #### C BC, CK, TSH3, CMP, ESR, CRP, T4F #### [facility] [address] Neutrophils/100 WBC (Bld) 64.0 % Normal . [facility] Comment on above: Performed By: #### C BC, CK, TSH3, CMP, ESR, CRP, T4F #### [facility] [address] Nucleated RBC/100 WBC (Bld) [Ratio] 0.0 % Normal 0-0.5 [facility] Comment on above: Performed By: #### C BC, CK, TSH3, CMP, ESR, CRP, T4F #### [facility] [address] Platelet mean volume (Bld) [Entitic vol] 7.8 fL Normal 6.3-10.7 [facility] Comment on above: Performed By: #### C BC, CK, TSH3, CMP, ESR, CRP, T4F #### [facility] [address] Platelets (Bld) [#/Vol] 336 10*3/uL Normal 150-450 [facility] Comment on above: Performed By: #### C BC, CK, TSH3, CMP, ESR, CRP, T4F #### [address] RBC (Bld) [#/Vol] 4.63 10*6/uL Normal 3.60-5.00 [facility] Comment on above: Performed By: #### C BC, CK, TSH3, CMP, ESR, CRP, T4F #### [facility] [address] WBC (Bld) [#/Vol] 6.9 10*3/uL Normal 4.5-11.[address] [facility] Comment on above: Performed By: #### C BC, CK, TSH3, CMP, ESR, CRP, T4F #### [facility] [address] Comprehensive Metabolic Pane julisa 10-15-2021 Albumin [Mass/Vol] 4.1 g/dL Normal 3.2-5.[address] [facility] Comment on above: Performed By: #### C BC, CK, TSH3, CMP, ESR, CRP, T4F #### [facility] [address] Albumin/Globulin [Mass ratio] 1.8 {ratio} Normal [facility] Comment on above: Performed By: #### C BC, CK, TSH3, CMP, ESR, CRP, T4F #### [facility] [address] ALP [Catalytic activity/Vol] 56 U/L Normal 32-92 [facility] Comment on above: Performed By: #### C BC, CK, TSH3, CMP, ESR, CRP, T4F #### [facility] [address] ALT [Catalytic activity/Vol] 20 U/L Normal 10-60 [facility] Comment on above: Performed By: #### C BC, CK, TSH3, CMP, ESR, CRP, T4F #### [facility] [address] Anion gap [Moles/Vol] 13.1 mmol/L Normal 6.0-15.0 [facility] Comment on above: Performed By: #### C BC, CK, TSH3, CMP, ESR, CRP, T4F #### [facility] [address] AST [Catalytic activity/Vol] 14 U/L Normal 10-42 [facility] Comment on above: Performed By: #### C BC, CK, TSH3, CMP, ESR, CRP, T4F #### [address] Bilirubin [Mass/Vol] 1.3 mg/dL High 0.3-1.2 [facility] Comment on above: Result Comment: Samp les from patients who have taken Naproxen have shown spurious elevation in Total Bilirubin levels. A metabolite of Naproxen, O-desmethylnaproxen, has been shown to interfere with the Jendrassik-Grof method for measuring Total Bilirubin. Performed By: #### C BC, CK, TSH3, CMP, ESR, CRP, T4F #### [facility] [address] Calcium [Mass/Vol] 9.8 mg/dL Normal 8.2-10.[address] [facility] Comment on above: Performed By: #### C BC, CK, TSH3, CMP, ESR, CRP, T4F #### [facility] [address] Chloride [Moles/Vol] 104 mmol/L Normal 95-114 [facility] Comment on above: Performed By: #### C BC, CK, TSH3, CMP, ESR, CRP, T4F #### [address] CO2 [Moles/Vol] 26.7 mmol/L Normal 22.0-30.0 [facility] Comment on above: Performed By: #### C BC, CK, TSH3, CMP, ESR, CRP, T4F #### [address] Creatinine [Mass/Vol] 0.64 mg/dL Normal 0.44-1.03 [facility] Comment on above: Performed By: #### C BC, CK, TSH3, CMP, ESR, CRP, T4F #### [address] Estimated GFR ( Wendie > 60 [facility] Comment on above: Result Comment: GFR estimated reference range: According to KDOQI guidelines, <60 ml/min/1.73m2 is sufficient to diagnose a patient with chronic kidney disease. Performed By: #### C BC, CK, TSH3, CMP, ESR, CRP, T4F #### [address] Estimated GFR (Non- Am > 60 [facility] Comment on above: Performed By: #### C BC, CK, TSH3, CMP, ESR, CRP, T4F #### [facility] [address] Globulin (S) [Mass/Vol] 2.3 g/dL Normal F [facility] Comment on above: Performed By: #### C BC, CK, TSH3, CMP, ESR, CRP, T4F #### [facility] [address] Glucose [Mass/Vol] 93 mg/dL Normal 70-[address] [facility] Comment on above: Result Comment: [facility] Glucose Reference Range is dependent on time and content of last meal. Glucose of more than 200 mg/dL in a nonstressed, ambulatory subject supports the diagnosis of Diabetes Mellitus. ADA recommended reference range Performed By: #### C BC, CK, TSH3, CMP, ESR, CRP, T4F #### [facility] [address] Potassium [Moles/Vol] 4.8 mmol/L Normal 3.5-5.1 [facility] Comment on above: Performed By: #### C BC, CK, TSH3, CMP, ESR, CRP, T4F #### [facility] [address] Protein [Mass/Vol] 6.4 g/dL Normal 6.1-7.[address] [facility] Comment on above: Performed By: #### C BC, CK, TSH3, CMP, ESR, CRP, T4F #### [facility] [address] Sodium [Moles/Vol] 139 mmol/L Normal 136-[address] [facility] Comment on above: Performed By: #### C BC, CK, TSH3, CMP, ESR, CRP, T4F #### [facility] [address] Urea nitrogen [Mass/Vol] 15 mg/dL Normal 9-23 [facility] Comment on above: Performed By: #### C BC, CK, TSH3, CMP, ESR, CRP, T4F #### [facility] [address] [place] [address] [place] Creatine Kinaseon 10-15-2021 CK [Catalytic activity/Vol] 44 U/L Normal - [facility] Comment on above: Result Comment: PERF ORMED BY: [place] [address] PATHOLOGIST DIETITIAN RESEARCH ZENAIDA SHERMAN M.D. Performed By: #### C BC, CK, TSH3, CMP, ESR, CRP, T4F #### [facility] [address] [place] [id number] [facility] Creatine kinase [Enzymatic a ctivity/volume] in Serum or PlasmaOrdered By: Que Silva on 10-15-2021 CK [Catalytic activity/Vol] 44 U/L [facility] Creatinine and Glomerular fi ltration rate.predicted panel (S/P/Bld)Ordered By: Que Sivla on 10-15-2021 Creatinine [Mass/Vol] 0.64 mg/dL 0.44-1.03 [facility] Eosinophils Auto (Bld) [#/Vo l]Ordered By: Que Silva on 10-15-2021 Eosinophils (Bld) [#/Vol] 0.0 10*3/uL 0.0-0.45 [facility] Eosinophils/100 WBC Auto (Bl d)Ordered By: Que Silva on 10-15-2021 Eosinophils/100 WBC (Bld) 0.4 % . [facility] Erythrocyte Sedimentation Ra sherrill 10-15-2021 ESR (Bld) [Velocity] 18 mm/h Normal 0-29 [facility] Comment on above: Result Comment: PERF ORMED BY: [address] [place] [address] PATHOLOGIST DIETITIAN RESEARCH ZENAIDA SHERMAN M.D. Performed By: #### C BC, CK, TSH3, CMP, ESR, CRP, T4F #### [facility] [address] [place] [address] [address] [facility] Erythrocyte distribution wid th Auto (RBC) [Ratio]Ordered By: Que Silva on 10-15-2021 Erythrocyte distribution width (RBC) [Ratio] 14.1 % 11.9-15.3 [facility] Erythrocyte sedimentation ra te by Photometric methodOrdered By: Que Silva on 10-15-2021 ESR Photometric method (Bld) [Velocity] 18 mm/hr 0-29 [facility] Estimated glomerular filtrat ion rate (GFR) non- AmericanOrdered By: Que Silva on 10-15-2021 GFR/1.73 sq M.predicted among non-blacks MDRD (S/P/Bld) [Vol rate/Area] > 60 mL/Min [facility] Free T4 (Free Thyroxine)on 0 10-15-2021 Free T4 [Mass/Vol] 0.97 ng/dL Normal 0.61-1.[address] [facility] Comment on above: Performed By: #### C BC, CK, TSH3, CMP, ESR, CRP, T4F #### [address] Globulin Calc (S) [Mass/Vol] Ordered By: Que Silva on 10-15-2021 Globulin (S) [Mass/Vol] 2.3 g/dL F [facility] Hematocrit Auto (Bld) [Volum e fraction]Ordered By: Que Silva on 10-15-2021 Hematocrit (Bld) [Volume fraction] 42.7 % 34.0-46.4 [facility] Laboratory - Hematology and Cell countsOrdered By: Que Silva on 10-15-2021 Nucleated RBC/100 WBC (Bld) [Ratio] 0.0 % 0-0.5 [facility] Lymphocytes Auto (Bld) [#/Vo l]Ordered By: Que Sliva on 10-15-2021 Lymphocytes (Bld) [#/Vol] 1.9 10*3/uL 1.00-4.8 [facility] Lymphocytes/100 WBC Auto (Bl d)Ordered By: Que Silva on 10-15-2021 Lymphocytes/100 WBC (Bld) 28.0 % . [facility] MCH Auto (RBC) [Entitic mass ]Ordered By: Que Silva on 10-15-2021 MCH (RBC) [Entitic mass] 30.2 pg 24.7-34.3 [facility] MCHC Auto (RBC) [Mass/Vol]Or dered By: Que Silva on 10-15-2021 MCHC (RBC) [Mass/Vol] 32.8 g/dL 32.0-35.0 [facility] MCV Auto (RBC) [Entitic vol] Ordered By: Que Silva on 10-15-2021 MCV (RBC) [Entitic vol] 92.2 fL 80-100 [facility] Monocytes Auto (Bld) [#/Vol] Ordered By: Que Silva on 10-15-2021 Monocytes (Bld) [#/Vol] 0.5 10*3/uL 0.0-0.8 [facility] Monocytes/100 WBC Auto (Bld) Ordered By: Que Silva on 10-15-2021 Monocytes/100 WBC (Bld) 6.7 % . [facility] Neutrophils Auto (Bld) [#/Vo l]Ordered By: Que Silva on 10-15-2021 Neutrophils (Bld) [#/Vol] 4.4 10*3/uL 1.8-7.7 [facility] Neutrophils/100 WBC Auto (Bl d)Ordered By: Que Silva on 10-15-2021 Neutrophils/100 WBC (Bld) 64.0 % . [facility] No Panel InformationOrdered By: Que Silva on 10-15-2021 Estimated GFR () > 60 mL/Min [facility] Comment on above: GFR estimated refere nce range: According to KDOQI guidelines, <60 ml/min/1.73m2 is sufficient to diagnose a patient with chronic kidney disease. Pharmacy Creatinine Clearance (Chem N/A [facility] Platelet mean volume Auto (B ld) [Entitic vol]Ordered By: Que Silva on 10-15-2021 Platelet mean volume (Bld) [Entitic vol] 7.8 fL 6.3-10.7 [facility] Platelets Auto (Bld) [#/Vol] Ordered By: Que Silva on 10-15-2021 Platelets (Bld) [#/Vol] 336 10*3/uL 150-450 [facility] Protein [Mass/volume] in Ser um or PlasmaOrdered By: Que Silva on 10-15-2021 Protein [Mass/Vol] 6.4 g/dL 6.1-7.[address] [facility] RBC Auto (Bld) [#/Vol]Ordere d By: Que Silva on 10-15-2021 RBC (Bld) [#/Vol] 4.63 10*6/uL 3.60-5.00 [facility] Serum or plasma alanine soriano otransferase measurement without P-5'-P (enzymatic activiOrdered By: Que Silva on 10-15-2021 ALT No additional P-5'-P [Catalytic activity/Vol] 20 U/L 10-60 [facility] Serum or plasma albumin/glob ulin mass ratioOrdered By: Que Silva on 10-15-2021 Albumin/Globulin [Mass ratio] 1.8 {ratio} [facility] Serum or plasma alkaline markus sphatase measurement (enzymatic activity/volume)Ordered By: Que Silva on 10-15-2021 ALP [Catalytic activity/Vol] 56 U/L 32-92 [facility] Serum or plasma anion gap de terminationOrdered By: Que Silva on 10-15-2021 Anion gap [Moles/Vol] 13.1 mmol/L 6.0-15.0 [facility] Serum or plasma aspartate am inotransferase measurement (enzymatic activity/volume)Ordered By: Que Silva on 10-15-2021 AST [Catalytic activity/Vol] 14 U/L 10-42 [facility] Serum or plasma calcium leonarda urement (mass/volume)Ordered By: Que Silva on 10-15-2021 Calcium [Mass/Vol] 9.8 mg/dL 8.2-10.[address] [facility] Serum or plasma chloride joanna surement (moles/volume)Ordered By: Que Silva on 10-15-2021 Chloride [Moles/Vol] 104 mmol/L 95-114 [facility] Serum or plasma glucose leonarda urement (mass/volume)Ordered By: Que Silva on 10-15-2021 Glucose [Mass/Vol] 93 mg/dL 70-[address] [facility] Comment on above: ADA recommended refe rence range Random Glucose Reference Range is dependent on time and content of last meal. Glucose of more than 200 mg/dL in a nonstressed, ambulatory subject supports the diagnosis of Diabetes Mellitus. Serum or plasma potassium me asurement (moles/volume)Ordered By: Que Silva on 10-15-2021 Potassium [Moles/Vol] 4.8 mmol/L 3.5-5.1 [facility] Serum or plasma sodium measu rement (moles/volume)Ordered By: Que Silva on 10-15-2021 Sodium [Moles/Vol] 139 mmol/L 136-[address] [facility] Serum or plasma total biliru bin measurement (mass/volume)Ordered By: Que Silva on 10-15-2021 Bilirubin [Mass/Vol] 1.3 mg/dL 0.3-1.2 [facility] Comment on above: Samples from patient s who have taken Naproxen have shown spurious elevation in Total Bilirubin levels. A metabolite of Naproxen, O-desmethylnaproxen, has been shown to interfere with the Osmin-Miguel method for measuring Total Bilirubin. Serum or plasma total carbon dioxide measurement (moles/volume)Ordered By: Que Silva on 10-15-2021 CO2 [Moles/Vol] 26.7 mmol/L 22.0-30.0 [facility] Serum or plasma urea nitroge n measurement (mass/volume)Ordered By: Que Silva on 10-15-2021 Urea nitrogen [Mass/Vol] 15 mg/dL 9-23 [facility] TSH DL <= 0.005 mIU/L QnOrde red By: Que Silva on 10-15-2021 TSH Qn 1.89 m[IU]/L 0.45-5.33 [facility] Thyroid Stimulating Hormoneo n 10-15-2021 TSH Qn 1.89 m[IU]/L Normal 0.45-5.33 [facility] Comment on above: Result Comment: PERF ORMED BY: [facility] [address] [place] [address] PATHOLOGIST DIETITIAN RESEARCH ZENAIDA SHERMAN M.D. Performed By: #### C BC, CK, TSH3, CMP, ESR, CRP, T4F #### [facility] [id number] [facility] Thyroxine (T4) free [Mass/vo lume] in Serum or PlasmaOrdered By: Que Silva on 10-15-2021 Free T4 [Mass/Vol] 0.97 ng/dL 0.61-1.[address] [facility] DRUG SCREEN, UR-RFLEX CONFIR 07-11-2021 ALCOHOL, UR. Negative Normal (< 10 - Cutof) [facility] Comment on above: Order Comment: FACIL ITY: [facility] [id number] Performed By: #### D S-M+ #### [facility] [address] [place], [address] AMPHETAMINES, UR. Negative Normal (< 500 - Cutof) [facility] Comment on above: Order Comment: FACIL ITY: [facility] [id number] Performed By: #### D S-M+ #### [facility] [address] [place], [address] BARBITURATES, UR. Negative Normal (< 300 - Cutof) [facility] Comment on above: Order Comment: FACIL ITY: [facility] [id number] Performed By: #### D S-M+ #### [facility] [address] [place], [address] BENZODIAZEPINES, UR. Negative Normal (< 100 - Cutof) [facility] Comment on above: Order Comment: FACIL ITY: [facility] [id number] Performed By: #### D S-M+ #### [facility] [address] [place], [address] COCAINE METAB. UR. Negative Normal (< 150 - Cutof) [facility] Comment on above: Order Comment: FACIL ITY: [facility] [id number] Performed By: #### D S-M+ #### [facility] [address] [place], [address] CREAT, URINE 102.39 MG/DL Normal (20.00 - 320.0) [facility] on [facility]: Order Comment: FACIL ITY: [facility] [id number] Performed By: #### Livia S-M+ #### [facility] [address] [place], [address] FENTANYL, UR SCREEN Negative Normal (< 1.0 - Cutof) [facility] on above: Order Comment: FACIL ITY: [facility] [id number] Performed By: #### D S-M+ #### [facility] [address] [place], [address] HEROIN METAB. UR. Negative Normal (< 10 - Cutof) [facility] Comment on above: Order Comment: FACIL ITY: [facility] [id number] Performed By: #### Livia S-M+ #### [facility] [address] [place], [address] METHADONE METAB. UR. Negative Normal (< 100 - Cutof) [facility] Comment on above: Order Comment: FACIL ITY: [facility] [id number] Performed By: #### Livia S-M+ #### [facility] [address] [place], [address] OPIATES, UR. Negative Normal (< 100 - Cutof) [facility] Comment on above: Order Comment: FACIL ITY: [facility] [id number] Performed By: #### D S-M+ #### [facility] [address] [place], [address] OXYCODONE, UR. Negative Normal (< 100 - Cutof) [facility] Comment on above: Order Comment: FACIL ITY: [facility] [id number] Performed By: #### D S-M+ #### [facility] [address] [place], [address] pH (U) 6.0 [pH] Normal (5.0 - 9.0) [facility] Comment on above: Order Comment: FACIL ITY: [facility] [id number] Performed By: #### D S-M+ #### [facility] [address] [facility], [address] PHENCYCLIDINE, UR. Negative Normal (< 25 - Cutof) [facility] Comment on above: Order Comment: FACIL ITY: [facility] [id number] Performed By: #### D S-M+ #### [facility] [address] [facility], [address] THC METABOLITE, UR. Negative Normal (< 20 - Cutof) [facility] Comment on above: Order Comment: FACIL ITY: [facility] [id number] Performed By: #### D S-M+ #### [facility] [address] [facility], [address] TRAMADOL, UR SCREEN Negative Normal (< 200 - Cutof) [facility] Comment on above: Order Comment: FACIL ITY: [facility] [id number] Result Comment: This drug testing is for medical treatment only. Analysis was performed as non-forensic testing and the results should be used only by healthcare providers to render diagnosis or treatment, or to monitor the progress of medical conditions. Performed By: #### D S-M+ #### [facility] [address] [facility], [address] GLUCOSEon 03-28-2021 Glucose [Mass/Vol] 84 mg/dL Normal 65-99 [facility] Comment on above: Result Comment: Perf ormed at [facility] [address] [place] [address] [facility] [address] [place] [address] CLIA No. [id number] CAP Accreditation No. [id number] Paintings Conservator: Guanakito Rucker M.D. LIPID PANEL WITH REFLEX TO D IRECT LDLon 03-28-2021 Cholesterol [Mass/Vol] 191 mg/dL Normal 150-200 [facility] Cholesterol.total/Choles terol in HDL [Mass ratio] 2.6 {ratio} Normal 1.0-5.0 [facility] Comment on above: Result Comment: Test performed at [facility] [address] [place] [address] CLIA Number [id number] -------- HDL-CHOL 74 mg/dL Normal >39 [facility] Comment on above: Result Comment: HDL <40 mg/dL - High Risk HDL > or = 40mg/dL- Desirable HDL >60 mg/dL - Negative Risk LDL-CHOL, CALCULATED 109 mg/dL Normal <130 [facility] Comment on above: Result Comment: LDL <100 mg/dL - Desirable LDL >160 mg/dL - High Risk LDL/HDL 1.5 Normal <3.5 [facility] Triglyceride [Mass/Vol] 41 mg/dL Normal 27-150 [facility] VLDL-CHOL, CALCULATED 8 mg/dL Normal 0-30 [facility] CNPAtiya 03-14-2021 CNPN Telephone (ORTHSO) ---- SUSY KOHLER ([id number]) 1960 F Date Time Provider Department 03/14/21 LETTY TAYLOR During your visit today, we recorded the following information about you: Maureen Aly Pss 03/14/2021 2:17 PM Signed Susy Kohler is calling Letty Taylor MD today regarding Results - Mri. Patient has been identified by name and birthdate. Susy had an MRI on 02/09. She would like to know if you have had time to review the results. She is requesting a return call at [phone] to discuss them. Maureen Aly [facility] Herve Lima, AT 03/17/2021 3:23 PM Signed Patient scheduled for MRI virtual follow up with Dr. Taylor 03/26/21 - 3:00 pm Herev Lima, MEd, AT, ATC Allergies As of Date: 03/14/2021 Noted Allergy Reaction DEMEROL (MEPERIDINE) 02/26/2021 11 - Vomiting Date Reviewed: 02/26/2021 Reviewed by: Kalin Thomson Ma - Fully Assessed Reason for Visit: Results - Mri [3561] Problem List As Of Date: 03/14/2021 (None) Encounter Status:Closed by HERVE LIMA on 03/17/21 Normal [facility] MR Hip - right WO contraston 03-07-2021 IMPRESSION: Mild osteoarthritis right hip with associated anterior superior labral tear. Degenerative disc disease L5-S1. [facility] Transcribe Date/Time: Mar 07 2021 9:27P Dictated by : TRACY ADAN MD This examination was interpreted and the report reviewed and electronically signed by: TRACY ADAN MD on Mar 07 2021 9:32PM [facility] DIVISION OF RADIOLOGY * * *Final Report* * * DATE OF EXAM: Mar 07 2021 7:30PM [facility] 0207 - MRI HIP WO IVCON RT / PROCEDURE REASON: Pain in hip * * * * Physician Interpretation * * * * MRI RIGHT HIP WITHOUT CONTRAST HISTORY: Pain in hip COMPARISON: 02/26/2021 x-rays and 01/01/2021 MRI TECHNIQUE: Multiplanar PD, T1 and T2 weighted images. RESULT: Right hip: Anterior superior labral tear. Mild osteoarthritis with small areas of chondral loss/fissuring. No discrete full-thickness chondral defect identified. No significant joint effusion. Left hip: Evaluation limited on large field of view images. No definite labral tear or full-thickness chondral defect. No joint effusion. Sacroiliac joints: Minimal degenerative change bilateral sacroiliac joints. Pubic symphysis: Mild degenerative change. Bone/bone marrow: No focal lesion or marrow replacement process. No avascular necrosis. Tendons: Gluteal, hamstring and iliopsoas tendons are within normal limits. Muscles/soft tissues: Muscle bulk and signal intensity is maintained. Other: Degenerative disc disease L5-S1. DIVISION OF RADIOLOGY Provider, [facility] [place] - 03/07/2021 * * *Final Report* * * DATE OF EXAM: Mar 07 2021 7:30PM [facility] 0207 - MRI HIP WO IVCON RT / PROCEDURE REASON: Pain in hip * * * * Physician Interpretation * * * * MRI RIGHT HIP WITHOUT CONTRAST HISTORY: Pain in hip COMPARISON: 02/26/2021 x-rays and 01/01/2021 MRI TECHNIQUE: Multiplanar PD, T1 and T2 weighted images. RESULT: Right hip: Anterior superior labral tear. Mild osteoarthritis with small areas of chondral loss/fissuring. No discrete full-thickness chondral defect identified. No significant joint effusion. Left hip: Evaluation limited on large field of view images. No definite labral tear or full-thickness chondral defect. No joint effusion. Sacroiliac joints: Minimal degenerative change bilateral sacroiliac joints. Pubic symphysis: Mild degenerative change. Bone/bone marrow: No focal lesion or marrow replacement process. No avascular necrosis. Tendons: Gluteal, hamstring and iliopsoas tendons are within normal limits. Muscles/soft tissues: Muscle bulk and signal intensity is maintained. Other: Degenerative disc disease L5-S1. IMPRESSION IMPRESSION: Mild osteoarthritis right hip with associated anterior superior labral tear. Degenerative disc disease L5-S1. Partnership Manager: JUAN Transcribe Date/Time: Mar 07 2021 9:27P Dictated by : TRACY ADAN MD This examination was interpreted and the report reviewed and electronically signed by: TRACY ADAN MD on Mar 07 2021 9:32PM EST [facility] Radiology [facility]narrative) [facility] - right WO contrastOr dered By: Ccf Provider on 03-07-2021 [facility] MRI HIP WO IVCON RTon 2021 MRI HIP WO IVCON RT * * *Final Report* * * DATE OF EXAM: Mar 07 2021 7:30PM M 0207 - MRI HIP WO IVCON RT / PROCEDURE REASON: Pain in hip * * * * Physician Interpretation * * * * MRI RIGHT HIP WITHOUT CONTRAST HISTORY: Pain in hip COMPARISON: 02/26/2021 x-rays and 01/01/2021 MRI TECHNIQUE: Multiplanar PD, T1 and T2 weighted images. RESULT: Right hip: Anterior superior labral tear. Mild osteoarthritis with small areas of chondral loss/fissuring. No discrete full-thickness chondral defect identified. No significant joint effusion. Left hip: Evaluation limited on large field of view images. No definite labral tear or full-thickness chondral defect. No joint effusion. Sacroiliac joints: Minimal degenerative change bilateral sacroiliac joints. Pubic symphysis: Mild degenerative change. Bone/bone marrow: No focal lesion or marrow replacement process. No avascular necrosis. Tendons: Gluteal, hamstring and iliopsoas tendons are within normal limits. Muscles/soft tissues: Muscle bulk and signal intensity is maintained. Other: Degenerative disc disease L5-S1. IMPRESSION: Mild osteoarthritis right hip with associated anterior superior labral tear. Degenerative disc disease L5-S1. Partnership Manager: [facility] Transcribe Date/Time: Mar 07 2021 9:27P Dictated by : TRACY ADAN MD This examination was interpreted and the report reviewed and electronically signed by: TRACY ADAN MD on Mar 07 2021 9:32PM EST [id number] Normal [facility] CNOVon 02-26-2021 CNOV Office Visit (SPRTSO) ---- SUSY KOHLER ([id number]) 1960 F Date Time Provider Department 02/26/21 10:00 AM LETTY TAYLOR During your visit today, we recorded the following information about you: Herve Urbano MD 02/26/2021 11:53 AM Signed DEPARTMENT OF ORTHOPAEDICS Consultation as a request of self Chief Complaint: Right hip pain HISTORY OF PRESENT ILLNESS: This is a pleasant 61 year old female, who presents today with a chief complaint of right hip pain. She has had a year of severe right hip pain. This started while she was in physical therapy for her back. Notes the pain is primarily in her groin. It is worse with activity. She had an intra-articular corticosteroid injection 6 months ago with some short-term relief. She currently has problems with most ADLs. She is unable to lie down due to her hip pain. Injury/ Trauma: Denies PAIN EVALUATION 02/26/2021 0951 Pain Level: 9 Pain Location: Hip-Right Description: Aching Duration Amount of Time: 1 Duration Units: Years Frequency: Continuous Pain location: anterior Duration of pain/ symptoms: 1 year Frequency: constant Intensity: severe Quality: sharp She Reports nocturnal pain. She denies numbness, tingling, or electric shocks. She denies popping, clicking, catching, locking, grinding, instability, buckling, or giving way. Aggravating factors: ADL's Alleviating factors: Sitting Prior Treatments: xray, MRI, physical therapy and steroid injections Hip joint injection Yes Physical therapy Yes - if yes dates: Home exercise program No if yes dates: Medications: NSAID: Yes name(s) and duration of use: Acetaminophen Yes duration of use Work Related: No Activity level: sedentary, sport/activity: none No past medical history on file. No past surgical history on file. No current outpatient medications on file. No current facility-administer ed medications for this visit. ALLERGIES Allergen Reactions - Demerol [Meperidine] Vomiting No family history on file. Social History Tobacco Use - Smoking status: Not on file - Smokeless tobacco: Not on file Substance Use Topics - Alcohol use: Not on file - Drug use: Not on file REVIEW OF SYSTEMS: GENERAL: No weight loss, malaise or fevers HEENT: Negative for frequent or significant headaches, No changes in hearing or vision, no nose bleeds or other nasal problems NECK: Negative for lumps, goiter, pain and significant neck swelling RESPIRATORY: Negative for cough, hemoptysis, wheezing, COPD, dyspnea or shortness of breath CARDIOVASCULAR: Negative for chest pain, leg swelling, hypertension, CHF or palpitations GI: No nausea, vomiting, or diarrhea : No history of dysuria, frequency or incontinence CLINICAL APPLICATION SPECIALIST: Negative for abnormal vaginal bleeding, abnormal vaginal discharge MUSCULOSKELETAL: Negative for joint pain or swelling, back pain or muscle pain SKIN: Negative for lesions, rash, and itching HEMATOLOGY/LYMPHOLO GY: Negative for prolonged bleeding, bruising easily or swollen nodes ENDOCRINE: Negative for cold or heat intolerance, polyuria, polydipsia and goiter RADIOGRAPHS: right AP pelvis, Le lateral and false view dated today revealed no acute processes, fractures, or dislocations. There is a cam lesion. Osseous and soft tissue structures within normal limits. X-Rays Reviewed and discussed. OTHER STUDIES: Not applicable right hip MRI brought in on a CD dated within 90 days revealed no acute processes, fractures, or dislocations. Mild degenerative changes of the hip joint. There is a hip effusion PHYSICAL EXAM: There were no vitals taken for this visit. General: Appears stated age, well built, in no apparent distress. Psychiatric: Mood and affect appropriate. Alert and oriented x 3 without evidence of abnormal respiratory effort. Musculoskeletal Exam: Gait antalgic, Posture: stooped. Exam: Right Left Single Leg Trendelenburg Unable to perform Unable to perform Hip flexion 110 110 IR 20 20 ER 50 50 Anterior impingement positive positive Dynamic labral stress positive negative KEM positive negative Posterior Impingement negative negative WILLIAM negative negative Strength Right Left Supine HF 4/5 4+/5 Upright HF 4/5 4+/5 Adduction 4+/5 4+/5 Abduction 4+/5 4+/5 Tenderness with Palpation: Right Left Greater Troch Negative Negative Gluteus Medius Negative Negative Piriformis Negative Negative PROCEDURE: Not applicable IMPRESSION: 1. right Hip Osteoarthritis. She does appear to have a rapidly progressive arthritic hip picture. Her previous MRI in December 2020 is of poor quality and does not delineate cartilage and labrum very well.. However it does show an effusion which is concerning. PLAN: 1. Medication: None. 2. Test(s)/Imaging/Ref erral(s): MRI on a 3T magnet to better delineate cartilage and labrum. (more content not included)... Normal [facility] XR HIP 3V PELV+ AP/LAT RTon 02-26-2021 XR HIP 3V PELV+ AP/LAT RT * * *Final Report* * * DATE OF EXAM: Feb 26 2021 9:23AM SOX 5352 - XR HIP 3V PELV+ AP/LAT RT / PROCEDURE REASON: Pain * * * * Physician Interpretation * * * * EXAMINATION: XR HIP 3V PELV+ AP/LAT RT PATIENT/TECHNOLOGIS T PROVIDED HISTORY: pt here c/o right hip pain. pt has been having pain for about a year. pt has a visible limp. CLINICAL INFORMATION ( PROVIDED BY ORDERING CLINICIAN) : Pain TECHNIQUE: XR HIP 3V PELV+ AP/LAT RT Laterality: RIGHT Number of different views (projections): 2 M: XB_1 COMPARISON: CT abdomen pelvis 2021, MRI right hip 12/28/2020 RESULT: No acute fracture or dislocation. The right hip joint space is preserved with marginal osteophyte formation. Minimal superior joint space narrowing left hip with marginal osteophytes. Moderate degenerative change of the pubic symphysis. Minimal degenerative change of the SI joints. Degenerative changes noted in the visualized lower lumbar spine, incompletely characterized. No other significant abnormality. IMPRESSION: Mild osteoarthritis of the hips without acute osseous findings. Partnership Manager: JUAN Transcribe Date/Time: Feb 26 2021 9:28A Dictated by : DL BLAKE MD This examination was interpreted and the report reviewed and electronically signed by: DL BLAKE MD on Feb 26 2021 9:30AM EST [id number] Normal [facility] XR Pelvis and Hip - right AP and Lateral frogon 02-26-2021 Radiology Study observation (narrative) Ceci Garcia IMPRESSION: Mild osteoarthritis of the hips without acute osseous findings. Partnership Manager: JUAN Transcribe Date/Time: Feb 26 2021 9:28A Dictated by : DL BLKAE MD This examination was interpreted and the report reviewed and electronically signed by: DL BLAKE MD on Feb 26 2021 9:30AM EST DIVISION OF RADIOLOGY * * *Final Report* * * DATE OF EXAM: Feb 26 2021 9:23AM SOX 5352 - XR HIP 3V PELV+ AP/LAT RT / PROCEDURE REASON: Pain * * * * Physician Interpretation * * * * EXAMINATION: XR HIP 3V PELV+ AP/LAT RT PATIENT/TECHNOLOGIS T PROVIDED HISTORY: pt here c/o right hip pain. pt has been having pain for about a year. pt has a visible limp. CLINICAL INFORMATION ( PROVIDED BY ORDERING CLINICIAN) : Pain TECHNIQUE: XR HIP 3V PELV+ AP/LAT RT Laterality: RIGHT Number of different views (projections): 2 M: XB_1 COMPARISON: CT abdomen pelvis 2021, MRI right hip 12/28/2020 RESULT: No acute fracture or dislocation. The right hip joint space is preserved with marginal osteophyte formation. Minimal superior joint space narrowing left hip with marginal osteophytes. Moderate degenerative change of the pubic symphysis. Minimal degenerative change of the SI joints. Degenerative changes noted in the visualized lower lumbar spine, incompletely characterized. No other significant abnormality. DIVISION OF RADIOLOGY Provider, [facility] [place] - 02/26/2021 * * *Final Report* * * DATE OF EXAM: Feb 26 2021 9:23AM SOX 5352 - XR HIP 3V PELV+ AP/LAT RT / PROCEDURE REASON: Pain * * * * Physician Interpretation * * * * EXAMINATION: XR HIP 3V PELV+ AP/LAT RT PATIENT/TECHNOLOGIS T PROVIDED HISTORY: pt here c/o right hip pain. pt has been having pain for about a year. pt has a visible limp. CLINICAL INFORMATION ( PROVIDED BY ORDERING CLINICIAN) : Pain TECHNIQUE: XR HIP 3V PELV+ AP/LAT RT Laterality: RIGHT Number of different views (projections): 2 M: XB_1 COMPARISON: CT abdomen pelvis 2021, MRI right hip 12/28/2020 RESULT: No acute fracture or dislocation. The right hip joint space is preserved with marginal osteophyte formation. Minimal superior joint space narrowing left hip with marginal osteophytes. Moderate degenerative change of the pubic symphysis. Minimal degenerative change of the SI joints. Degenerative changes noted in the visualized lower lumbar spine, incompletely characterized. No other significant abnormality. IMPRESSION IMPRESSION: Mild osteoarthritis of the hips without acute osseous findings. Partnership Manager: JUAN Transcribe Date/Time: Feb 26 2021 9:28A Dictated by : DL BLAKE MD This examination was interpreted and the report reviewed and electronically signed by: DL BLAKE MD on Feb 26 2021 9:30AM EST [facility] XR Pelvis and Hip - right AP and Lateral frogOrdered By: Ccf Provider on 02-26-2021 [facility] COVID-19, RapidOrdered By: Zoe Schaefer on 10-30-2020 Interpretation and review of laboratory results Abnormal [facility] Phone: SARS-CoV-2 (COVID-19) RNA CASSANDRA+probe Ql (Unsp spec) Detected Abnormal Not Detected [facility] Phone: Comment on above: Rapid NAAT: The specimen is POSITIVE for SARS-Cov-2, the novel coronavirus associated with COVID-19. This test has been authorized by the FDA under an Emergency Use Authorization (EUA) for use by authorized laboratories. The ID NOW COVID-19 assay is designed to detect the virus that causes COVID-19 in patients with signs and symptoms of infection who are suspected of COVID-19. An individual without symptoms of COVID-19 and who is not shedding SARS-CoV-2 virus would expect to have a negative (not detected) result in this assay. Fact sheet for Healthcare Providers: https://www.fda.gov/media/017237/download Fact sheet for Patients: https://www.fda.gov/media/356877/download Methodology: Isothermal Nucleic Acid Amplification Results reported to the appropriate Health Department Specimen Description .NASOPHARYNGEAL SWAB [facility] Phone: [facility] Phone: CT Head WO ContrastOrdered B y: Anu Rodney on 10-30-2020 No acute intracranial abnormality. [facility] Phone: EXAMINATION: CT OF THE HEAD WITHOUT CONTRAST 10/30/2020 4:29 pm TECHNIQUE: CT of the head was performed without the administration of intravenous contrast. Dose modulation, iterative reconstruction, and/or weight based adjustment of the mA/kV was utilized to reduce the radiation dose to as low as reasonably achievable. COMPARISON: None. HISTORY: ORDERING SYSTEM PROVIDED HISTORY: headache TECHNOLOGIST PROVIDED HISTORY: headache Decision Support Exception - unselect if not a suspected or confirmed emergency medical condition->Emergenc y Medical Condition (MA) FINDINGS: BRAIN/VENTRICLES: There is no acute intracranial hemorrhage, mass effect or midline shift. No abnormal extra-axial fluid collection. The guo-white differentiation is maintained without evidence of an acute infarct. There is no evidence of hydrocephalus. ORBITS: The visualized portion of the orbits demonstrate no acute abnormality. SINUSES: The visualized paranasal sinuses and mastoid air cells demonstrate no acute abnormality. SOFT TISSUES/SKULL: No acute abnormality of the visualized skull or soft tissues. [employer] Phone: Eb, [facility] Incoming Radiant Results From [facility] - 10/30/2020 4:35 PM EDT EXAMINATION: CT OF THE HEAD WITHOUT CONTRAST 10/30/2020 4:29 pm TECHNIQUE: CT of the head was performed without the administration of intravenous contrast. Dose modulation, iterative reconstruction, and/or weight based adjustment of the mA/kV was utilized to reduce the radiation dose to as low as reasonably achievable. COMPARISON: None. HISTORY: ORDERING SYSTEM PROVIDED HISTORY: headache TECHNOLOGIST PROVIDED HISTORY: headache Decision Support Exception - unselect if not a suspected or confirmed emergency medical condition->Emergenc y Medical Condition (MA) FINDINGS: BRAIN/VENTRICLES: There is no acute intracranial hemorrhage, mass effect or midline shift. No abnormal extra-axial fluid collection. The guo-white differentiation is maintained without evidence of an acute infarct. There is no evidence of hydrocephalus. ORBITS: The visualized portion of the orbits demonstrate no acute abnormality. SINUSES: The visualized paranasal sinuses and mastoid air cells demonstrate no acute abnormality. SOFT TISSUES/SKULL: No acute abnormality of the visualized skull or soft tissues. IMPRESSION: No acute intracranial abnormality. [employer] [facility] Phone: [employer] [facility] Phone: Glucose, Fastingon 9 Glucose [Mass/Vol] 92 mg/dL 70 - 99 mg/dL [facility] [place] Lipid, Fastingon 10-31-2018 Cholesterol [Mass/Vol] 202 mg/dL High <200 [place], [place] Comment on above: Cholesterol Guidelines: <200 Desirable 200-240 Borderline >240 Undesirable Cholesterol in HDL [Mass/Vol] 80 mg/dL >40 [place], [place] Comment on above: HDL Guidelines: <40 Undesirable 40-59 Borderline >59 Desirable Cholesterol in LDL [Mass/Vol] 112 mg/dL 0 - 130 mg/dL [place] Comment on above: LDL Guidelines: <100 Desirable 100-129 Near to/above Desirable 130-159 Borderline >159 Undesirable Direct (measured) LDL and calculated LDL are not interchangeable tests. Cholesterol in VLDL [Mass/Vol] NOT REPORTED 1 - 30 mg/dL [place], [place] Cholesterol.total/Choles terol in HDL [Mass ratio] 2.5 {ratio} <5 [place] Interpretation and review of laboratory results Abnormal [place], [place] Triglyceride, Fasting 48 mg/dL <150 [place], [place] Comment on above: Triglyceride Guidelines: <150 Desirable 150-199 Borderline 200-499 High >499 Very high Based on AHA Guidelines for fasting triglyceride, November 2011. Vital Signs Date Time Vital Sign Value Performing Clinician Isabelle doty 04-06-2022 09:05-0500 Heart rate 99 /min Francia Arzola DO Work Phone: [facility] 04-06-2022 09:05-0500 SaO2% (BldA) [Mass fraction] 98 % Francia Arzola DO Work Phone: [facility] 04-06-2022 08:09-0500 Body height 172.7 cm Francia Arzola DO Work Phone: [facility] 04-06-2022 08:09-0500 Body mass index (BMI) [Ratio] 23.57 kg/m2 Francia Arzola DO Work Phone: [facility] 04-06-2022 08:09-0500 Body temperature 98.71 [degF] Francia Arzola DO Work Phone: [facility] 04-06-2022 08:09-0500 Body weight 70.31 kg Francia Arzola DO Work Phone: [employer] 04-06-2022 08:09-0500 Diastolic blood pressure 82 mm[Hg] Francia Arzola DO Work Phone: [facility] [employer] 04-06-2022 08:09-0500 Respiratory rate 20 /min Francia Arzola DO Work Phone: [facility] [employer] 04-06-2022 08:09-0500 Systolic blood pressure 122 mm[Hg] Francia Arzola DO Work Phone: [facility] [employer] 10-30-2020 17:00-0400 SaO2% (BldA) [Mass fraction] 99 % Anu Schaefer MD Work Phone: [employer] Work Phone: 10-30-2020 16:15-0400 Diastolic blood pressure 68 mm[Hg] Anu Schaefer MD Work Phone: [employer] Work Phone: 10-30-2020 16:15-0400 Systolic blood pressure 135 mm[Hg] Anu Schaefer MD Work Phone: [employer] Work Phone: 10-30-2020 13:49-0400 Body mass index (BMI) [Ratio] 23.72 kg/m2 Anu Schaefer MD Work Phone: [employer] Work Phone: 10-30-2020 13:49-0400 Body temperature 98.6 [degF] Anu Schaefer MD Work Phone: [employer] Work Phone: 10-30-2020 13:49-0400 Body weight 70.76 kg Anu Schaefer MD Work Phone: [employer] Work Phone: 10-30-2020 13:49-0400 Heart rate 102 /min Anu Schaefer MD Work Phone: [employer] Work Phone: 10-30-2020 13:49-0400 Respiratory rate 16 /min Anu Schaefer MD Work Phone: [facility] [employer] Work Phone: Encounters Encounter Date Encounter Type Care Provider Facility Start: 04-17-2024 End: 04-17-2024 Orders Only Torsten Johnson GLOBAL POSITION SYSTEM TECHNICIAN-CRANE OILER Work Phone: [facility] Comment on above: Migraine, unspecifie d, not intractable, without status migrainosus Start: 03-02-2024 ambulatory [facility] Start: 01-03-2024 ambulatory Gurwinder Martinez acility:[facility] Start: 12-31-2023 End: 12-31-2023 ambulatory Jose Jaida Betancourt GLOBAL POSITION SYSTEM TECHNICIAN-CRANE OILER Facility:[facility] Start: 12-23-2023 End: 12-23-2023 ambulatory Jose Jaida Betancourt GLOBAL POSITION SYSTEM TECHNICIAN-CRANE OILER Facility:[facility] Start: 12-09-2023 End: 12-09-2023 Orders Only Torsten Johnson GLOBAL POSITION SYSTEM TECHNICIAN-CRANE OILER Work Phone: [facility] Comment on above: Encounter for other preprocedural examination Start: 12-09-2023 End: 12-09-2023 Patient encounter status Torsten Johnson GLOBAL POSITION SYSTEM TECHNICIAN-CRANE OILER Work Phone: [employer] Start: 12-08-2023 End: 12-08-2023 ambulatory Griffin Cordero MD Facility:[facility] Start: 12-03-2023 End: 12-03-2023 ambulatory [facility] Start: 12-03-2023 End: 12-03-2023 ambulatory [facility] Start: 12-02-2023 ambulatory [facility] Start: 11-16-2023 End: 11-16-2023 ambulatory Gurwinder De La Fuente MD Facility:[facility] Start: 11-16-2023 End: 11-16-2023 ambulatory Gurwinder De La Fuente MD Facility:[facility] Start: 10-18-2023 End: 10-18-2023 ambulatory Griffin Cordero MD Facility:[facility] Start: 09-07-2023 End: 09-07-2023 ambulatory Lourdes Long GLOBAL POSITION SYSTEM TECHNICIAN-CRANE OILER Facility:[facility] Start: 08-05-2023 End: 08-05-2023 ambulatory Griffin Cordero MD Facility:[facility] Start: 07-28-2023 End: 07-28-2023 ambulatory JESSICA CRUZ Not Available Start: 07-21-2023 End: 07-21-2023 ambulatory Griffin Cordero MD Facility:[facility] Start: 06-28-2023 End: 06-28-2023 ambulatory Griffin Cordero MD Facility:[facility] Start: 06-14-2023 End: 06-14-2023 ambulatory Lourdes Long GLOBAL POSITION SYSTEM TECHNICIAN-CRANE OILER Facility:[facility] Start: 06-03-2023 ambulatory Josecheryl Sena Kailash palomares GLOBAL POSITION SYSTEM TECHNICIAN-CRANE OILER Facility:[facility] Start: 05-27-2023 ambulatory Griffin Cordero MD Facilit y:[facility] Start: 03-29-2023 Orders Only Gurwinder De La Fuente MD Work Phone: [facility] Comment on above: Encounter for genera l adult medical examination without abnormal findings Start: 03-29-2023 Patient encounter status Gurwinder De La Fuente MD Work Phone: [facility] [employer] [facility] Start: 10-31-2022 End: 10-31-2022 Emergency department patient visit LILIBETH ORTIZ [facility] Start: 09-19-2022 End: 09-19-2022 Emergency department patient visit [facility] Start: 09-13-2022 End: 09-13-2022 Emergency department patient visit [facility] Start: 06-08-2022 End: 06-09-[address] SVITLANA BAILON . Facility: Start: 06-05-2022 End: 06-05-[address] SVITLANA BAILON . Facility:[facility] Start: 04-22-2022 End: 04-23-[address] SVITLANA BAILON . Facility:[facility] Start: 04-06-2022 End: 04-06-2022 Emergency department patient visit FRANCIA ARZOLA [facility] Start: 04-06-2022 End: 04-06-2022 Emergency department patient visit Francia Arzola DO Work Phone: [facility] ED Comment on above: Acute pharyngitis, u nspecified etiology (Primary Dx) Start: 10-15-2021 End: 10-15-2021 ambulatory Antonio Silva Facility:[facility] Start: 10-15-2021 End: 10-15-2021 Patient encounter procedure MD Antonio Silva Work Phone: [facility] [address] Start: 06-27-2021 ambulatory TIFFANIE SKINNER . Facili ty:[facility] Start: 03-07-2021 End: 03-07-2021 Subsequent hospital visit by physician [employer] Bl (Lg Bore/3t) Radiology Comment on above: Pain in hip [M25.559 ] Start: 02-26-2021 End: 02-26-2021 Subsequent hospital visit by physician Xr [facility] Work Phone: Radiology Comment on above: Pain [R52] Start: 02-12-2021 Orders Only Letty Taylor MD Work Phone: [facility] [place] Comment on above: Pain (Primary Dx) Start: 10-30-2020 End: 10-30-2020 Emergency department patient visit Anu Schaefer MD Work Phone: [facility] ED Comment on above: COVID-19 (Primary Dx ); Nonintractable headache, unspecified chronicity pattern, unspecified headache type Start: 10-31-2018 End: 10-31-2018 Subsequent hospital visit by physician Jacki NGUYENZ Laboratory Comment on above: Wellness examination Start: 10-31-2018 End: 04-24-2020 Patient encounter status Anu Schaefer MD Work Phone: [facility] Procedures Date Procedure Procedure Detail Performing Clinician Start: 04-06-2022 Iaadiadoo streptococ cus group a Francia J Arzola DO Work Phone: Start: 03-07-2021 Mri any jt lower ext rem w/o contrast matrl Letty Taylor MD Work Phone: Start: 02-26-2021 Radex hip unilateral with pelvis 2-3 views Letty Taylor MD Work Phone: Start: 10-30-2020 Ct head/brain w/o co ntrast material Anu Schaefer MD Work Phone: Start: 10-30-2020 COVID-19, RAPID Anu Schaefer MD Work Phone: Start: 04-26-2019 Colonoscopy Francia Iq bal DO Work Phone: Start: 10-31-[address] gtt 3 specimens Jacki Alfaro Work Phone: Start: 10-31-2018 Lipid panel Jacki Alfaro Work Phone: Start: 10-31-2018 Lipid 1996 panel - S braden or Plasma Mri Bore/3t) Plan of Treatment Date Care Activity Detail Author Start: 2037 RSV Vaccine (1 - 1-d ose 75+ series) RSV Vaccine (1 - 1-dose 75+ series) [facility] Start: 04-25-2029 Screening for malign ant neoplasm of colon [facility] Start: 03-27-2026 Lipid panel Lipids [facility] Start: 07-13-2024 End: 07-13-2024 Admission to same day surgery center 07/13/2024 1:30 PM EDT - 07/13/2024 2:15 PM EDT Surgery [facility] [address] [place] [address] Ida Rodriguez MD [address] [place] [address] EXTRACTION CATARACT INTRAOCULAR LENS [64787 (CPT )] [facility] Comment on above: EXTRACTION CATARACT INTRAOCULAR LENS [76759 (CPT )] Start: 07-13-2024 Subsequent hospital visit by physician 07/13/2024 1:30 PM EDT Hospital Encounter [facility] [address] [facility] [place] [phone] Ida Rodriguez MD [address] [place] [address] [id number] [facility] Start: 07-13-2024 End: 07-13-2024 Xcapsl ctrc rmvl insj io lens prosth w/o ecp EXTRACTION CATARACT INTRAOCULAR LENS cataract right eye 07/13/2024 1:30 PM EDT [facility] Start: 07-12-2024 End: 07-12-2024 ambulatory 07/12/2024 3:30 PM EDT Support Visit [facility] - Pre Admit [address] [place] [phone] [facility] Admit Start: 06-22-2024 End: 06-22-2024 Admission to same day surgery center 06/22/2024 1:30 PM EDT - 06/22/2024 2:15 PM EDT Surgery [facility] Surgery [address] [place] [phone] Ida Rodriguez MD [address] [place] [address] [id number] EXTRACTION CATARACT INTRAOCULAR LENS [89214 (CPT )] [facility] Surgery Comment on above: EXTRACTION CATARACT INTRAOCULAR LENS [19708 (CPT )] Start: 06-22-2024 Subsequent hospital visit by physician 06/22/2024 1:30 PM EDT Hospital Encounter [facility] Surgery [address] [place] [place] [phone] Ida Rodriguez MD [address] [place] [id number] [facility] Start: 06-22-2024 End: 06-22-2024 Xcapsl ctrc rmvl insj io lens prosth w/o ecp EXTRACTION CATARACT INTRAOCULAR LENS cataract left eye 06/22/2024 1:30 PM EDT [facility] Start: 05-31-2024 End: 05-31-2024 Patient encounter procedure 05/31/2024 9:00 AM EDT Procedure visit [facility] - Pre Admit [address] [place] [phone] [facility] - Pre Admit Start: 04-17-2024 End: 04-17-2025 Comprehensive metabolic 2000 panel - Serum or Plasma Comprehensive metabolic panel Lab Routine Migraine, unspecified, not intractable, without status migrainosus Expected: 04/17/2024, Expires: 04/17/2025 [employer] Work Phone: Comment on above: Expected: 04/17/2024 , Expires: 04/17/2025 Start: 12-09-2023 End: 12-08-2024 Comprehensive metabolic 2000 panel - Serum or Plasma Comprehensive metabolic panel Lab Routine Encounter for other preprocedural examination Expected: 12/09/2023, Expires: 12/08/2024 [employer] Work Phone: Comment on above: Expected: 12/09/2023 , Expires: 12/08/2024 Start: 11-01-2023 Lipid panel [facility] Start: 10-28-2023 Tobacco Screening Tobacco Screening [facility] Start: 10-27-2023 Adult BMI Screening Adult BMI Screen ing [facility] Start: 10-10-2023 Covid-19 Vaccine ( season) Covid-19 Vaccine () [facility] Start: 10-10-2023 COVID-19 Vaccine ( season) COVID-19 Vaccine () [facility] Start: 10-10-2023 [facility] Start: 03-29-2023 End: 03-29-2024 Comprehensive metabolic 2000 panel - Serum or Plasma Comprehensive metabolic panel Lab Routine Encounter for general adult medical examination without abnormal findings Expected: 03/29/2023, Expires: 03/29/2024 [facility] Work Phone: Comment on above: Expected: 03/29/2023 , Expires: 03/29/2024 Start: 03-29-2023 End: 03-29-2023 Patient encounter procedure 03/29/2023 Office Visit Internal Medicine Jacki Alfaro MD [address] [place] [address], [place] [address] Jacki Alfaro MD Start: 03-27-2023 Depression Screen Depression Screen [facility] Start: 03-27-2023 Influenza vaccination Flu vaccine (# 1) [facility] Comment on above: Postponed from 09/08 (Patient Refused) Start: 10-28-2022 Lipid screen Lipid screen [facility] [place], [place] Start: 10-09-2022 COVID-19 Vaccine ( season) COVID-19 Vaccine ( season) [facility] Start: 10-09-2022 Influenza vaccination Influenza Vacc ine [facility] Start: 04-17-2022 DTaP/Tdap/Td vaccine (1 - Tdap) DTaP/Tdap/Td vaccine (1 - Tdap) [facility] Comment on above: Postponed from 01/09 (Not Indicated) Start: 04-02-2022 Screening for malign ant neoplasm of breast Breast cancer screen [facility] Start: 03-25-2021 End: 03-25-2021 Patient encounter procedure 03/25/2021 Office Visit Internal Medicine Jacki Alfaro MD [address] [facility], [place] [address] Jacki Alfaro MD Start: 03-25-2021 Shingles Vaccine (1 of 2) Shingles Vaccine (1 of 2) [facility] Work Phone: Comment on above: Postponed from 01/09 (Patient Refused) Start: 10-09-2020 Influenza vaccination C [facility] Start: 11-10-2019 Screening for malign ant neoplasm of colon FIT/FOBT: Average risk [facility] Start: 11-03-2019 End: 11-03-2019 Office Visit 11/03/2019 Office Visit Internal Medicine Jacki Alfaro MD [address] [place] [address], [place] [address] Jacki Alfaro MD Start: 11-01-2019 Hepatitis C screen Hepatitis C scree n [place] Comment on above: Postponed from 01/09 (Patient Refused) Start: 11-01-2019 Influenza vaccination Flu vaccine (# 1) [place] Comment on above: Postponed from 10/09 (Patient Refused) Start: 01-19-2019 Breast cancer screen Breast cancer s creen [place], [place] Start: 12-10-2018 DTaP/Tdap/Td vaccine (1 - Tdap) DTaP/Tdap/Td vaccine (1 - Tdap) [place] Comment on above: Postponed from 01/09 (Patient Refused) Start: 12-10-2018 Shingles Vaccine (1 of 2) Shingles Vaccine (1 of 2) [place] Comment on above: Postponed from 01/09 (Patient Refused) Start: 10-14-2018 Colon Cancer Screen FIT/FOBT Colon Cancer Screen FIT/FOBT [place] Start: 01-10-2012 Administration of varicella zoster vaccine Zoster (Shingles) Vaccine (1 of 2) [facility] Start: 01-10-2012 Shingles vaccine (1 of 2) Shingles vaccine (1 of 2) [facility] Start: 01-10-2012 SHINGRIX VACCINE (1 of 2) SHINGRIX VACCINE (1 of 2) [facility] Start: 2007 COLOGUARD (FIT-DNA) COLOGUARD (FIT-D NA) [facility] Start: 2007 Colonoscopy COLONOSCOPY [facility] Start: 2007 COLORECTAL CANCER SCREENING COLORECTAL CANCER SCREENING [facility] Start: [address] COLONOGRAPHY [facility] Start: 2007 DIABETES SCREEN DIABETES SCREEN [facility] Start: 2007 Diabetes Screening Diabetes Screenin g [facility] Start: 2007 FECAL OCCULT BLOOD FECAL OCCULT BLOO D [facility] Start: 2007 LIPID SCREEN LIPID SCREEN [facility] Start: 2007 Screening for malign ant neoplasm of colon [facility] Start: 2007 SIGMOIDOSCOPY SIGMOIDOSCOPY [facility] Start: 2002 Mammography MAMMOGRAM [facility] Start: 2002 Screening for malign ant neoplasm of breast Mammogram Screening [facility] Start: 01-10-1992 HPV TESTING HPV TESTING [facility] Start: 1983 PAP TESTING PAP TESTING [facility] Start: 1983 Screening for malign ant neoplasm of cervix Cervical Cancer Screening [facility] Start: 1981 DTaP,Tdap and Td Vaccines (1 - Tdap) DTaP,Tdap and Td Vaccines (1 - Tdap) [facility] Start: 1981 DTaP/Tdap/Td vaccine (1 - Tdap) DTaP/Tdap/Td vaccine (1 - Tdap) [facility] Work Phone: Start: 1981 Urine microalbumin profile [facility] Start: 01-10-1980 Adult BMI Follow Up Plan Adult BMI Follow Up Plan [facility] Start: 01-10-1980 Anxiety Screening Anxiety Screening [facility] Start: 01-10-1980 Depression Screening Depression Scre ening [facility] Start: 01-10-1980 HEPATITIS C SCREENING HEPATITIS C [facility] Start: 01-10-1980 Hepatitis C screening Hepatitis C [facility] Start: 01-10-1980 HIV SCREENING HIV SCREENING [facility] Start: 01-10-1980 HIV screening HIV Screening [facility] Start: 1974 Adult depression screening assessment DEPRESSION SCREENING [facility] Start: 1967 COVID-19 VACCINE (1) COVID-19 VACCIN E (1) [facility] Ald[employer] measurement [facility] Work Phone: End: 03-14-2022 XR HIP GENERAL 3V PELV/AP/LAT RIGHT XR HIP GENERAL 3V PELV/AP/LAT RIGHT Radiology Routine Pain 1 Occurrences starting 02/13/2021 until 03/14/2022 [facility] Work Phone: Comment on above: 1 Occurrences starti ng 02/13/2021 until 03/14/2022 [facility] Immun[facility] Immunization Date Immunization Notes Care Provider Matheus gimenez 05-22-2021 COVID-19, MODERNA BL UE border, Primary or Immunocompromised, (age 12y+), IM, 100 mcg/0.5mL Francia Arzola DO Work Phone: [employer] Work Phone: 01-08-2021 COVID-19, MODERNA BL UE border, Primary or Immunocompromised, (age 12y+), IM, 100 mcg/0.5mL Francia Arzola DO Work Phone: [employer] Work Phone: 05-03-2020 COVID-19, MODERNA BL UE border, Primary or Immunocompromised, (age 12y+), IM, 100 mcg/0.5mL Francia Arzola DO Work Phone: [employer] Work Phone: 04-03-2020 COVID-19, MODERNA BL UE border, Primary or Immunocompromised, (age 12y+), IM, 100 mcg/0.5mL Francia Arzola DO Work Phone: [employer] Work Phone: Payers Date Payer Category Payer Self-pay 2021 Unknown [facility] [id number] 2021-Present [phone] [address] [place] [address] O [id number] 2018 Unknown [facility] xxxxxxxxxx 2018-Present [phone] [address] [place] [address] xxxxxxxxxx [id number] .[id number] 2018 Managed Care Other (unspecified) FRONTPATH [id number] .[id number] 2018 Unknown [id number]. 1.13.159.2 .[id number] 1962 Unknown [id number] 2.16.840.1.857824.3.579.2 .593 1962 Unknown [id number] 2.16.840.1.993635.3.579.2 .593 1962 Unknown [id number] 2.16.840.1.387972.3.579.2 .593 1962 Unknown [id number] 2.16.840.1.494497.3.579.2 .593 1962 Unknown [id number] 2.16.840.1.336652.3.579.2 .173 1962 Unknown [id number] 2.16.840.1.386426.3.579.2 .173 1962 Unknown [id number] 2.16.840.1.812005.3.579.2 .173 1962 Unknown [id number] 2.16.840.1.853756.3.579.2 .173 1962 Unknown [id number] 2.16.840.1.304811.3.579.2 .1259 1962 Unknown [id number] 2.16.840.1.594951.3.579.2 .196 1962 Unknown [id number] 2.16.840.1.484528.3.579.2 .196 1962 Unknown [id number] 2.16.840.1.468482.3.579.2 .196 1962 Unknown [id number] 2.16.840.1.683535.3.579.2 .196 1962 Unknown [id number] 2.16.840.1.202649.3.579.2 .196 1962 Unknown [id number] 2.16.840.1.022288.3.579.2 .196 1962 Unknown [id number] 2.16.840.1.090024.3.579.2 .196 1962 Unknown [id number] 2.16.840.1.299635.3.579.2 .196 1962 Unknown [id number] 2.16.840.1.190512.3.579.2 .196 1962 Unknown [id number] 2.16.840.1.665588.3.579.2 .196 1962 Unknown [id number] 2.16.840.1.179209.3.579.2 .196 1962 Unknown [id number] 2.16.840.1.214738.3.579.2 .196 1962 Unknown [id number] 2.16.840.1.194225.3.579.2 .196 1962 Unknown [id number] 2.16.840.1.551581.3.579.2 .196 1959 Unknown [id number] 1.2.840.123244.1.13.239.2 .7.3.843108.315 Unknown [id number] 2.16.840.1.694980.3.579.2 .531 Social History Date Type Detail Facility Start: 10-31-2018 End: 12-16-2021 Tobacco smoking status NHIS Never smoker [facility] [employer] [place] Start: 10-31-2018 End: 10-27-2022 Alcohol intake No [facility] [employer] [facility] Start: 06-28-2017 Alcohol Comment No DUI [place], [place] Start: 1960 Sex Assigned At Not on file M [place], [place] Start: 10-30-2020 End: 12-16-2021 Tobacco use and exposure Never used [employer] Start: 10-30-2020 End: 03-27-2022 Alcohol intake Current non-drinker of alcohol (finding) [facility]: Start: 03-25-2020 End: 03-27-2022 History SDOH Financial 5 [employer] Phone: Start: 03-25-2020 End: 03-27-2022 History SDOH Food Worry 1 [facility] Phone: Start: 03-25-2020 End: 03-27-2022 History SDOH Transport Med 2 [facility] Phone: Start: 01-27-2021 End: 04-06-2022 Exposure to SARS-CoV-2 (event) Not sure [employer] [facility] Start: 1960 Sex Assigned At Female F [facility] Start: 02-19-2021 Gender identity Identifies as female gender (finding) [facility] Start: 10-27-2022 Alcohol intake Ex-drinker (finding) [facility] Start: 07-20-2018 End: 10-27-2022 History of Social function [facility] Are you worried or concerned that in the next two months you may not have stable housing that you own, rent or stay in as a part of a household? No [facility] Start: 09-13-2014 [facility] (finding[facility] Medical Equipment Procedure Code Equipment Code Equipment Origin al Text Equipment Identifier Dates Head Fem 40mm Sm Mectacer Blx D Hip - Sn/A - [id number] Start: 10-26-2022 Plug Dome Hl Mpa ct Actb Scr Shl - Sn/A - [id number] Start: 10-26-2022 Shell Actb 56mm Hip 2 Hl Mpact 3d - Sn/A - [id number] Start: 10-26-2022 Liner Actb 40mm F [place] Flt Hd Mpact Hip Ns - Sn/A - [id number] Start: 10-26-2022 Stem Fem 6 2 Tpr Flt [place] Mectagrip Hip Lateralize - Sn/A - [id number] Start: 10-26-2022 Goals Date Patient Goal Desired Activity /State Personal health goal Comment on above: Formatting of this n ote might be different from the original. Evaluation of progress towards goal: Home with otpt therapy as previously scheduled. Clinical Notes 10-30-2020 to 03-02-2024 Discharge InstructionsAttachPeng Winter, RT(R) - 03/07/2021 7:00 PM Cynthia Devine, RT(R) - 02/26/2021 9:40 AM ESTInstructionsJean Note Date & Type Note Facility 03-02-2024 Note Chief Complaint: low back pain HPI When did this problem begin: Long time Timing/frequency of occurrence: Constant Pain description: dull ache Pain severity: 7 Radicular pain: right lower extremity Numbness/tingling: No Weakness: No What improves symptoms: Rest What makes symptoms worse: Activity Gait disturbance: No Fine hand dexterity problem: No Previous treatment for this problem: Spine injections ROS Constitutional: Fatigue: No Weight loss: No Fever: No Chills: No No past surgical history on file. No past medical history on file. No past surgical history on file. Not on File No current outpatient medications on file. Social History Socioeconomic History Marital status: Single Spouse name: Not on file Number of children: Not on file Years of education: Not on file Highest education level: Not on file Occupational History Not on file Tobacco Use Smoking status: Not on file Smokeless tobacco: Not on file Substance and Sexual Activity Alcohol use: Not on file Drug use: Not on file Sexual activity: Not on file Other Topics Concern Not on file Social History Narrative Not on file Social Determinants of Health Financial Resource Strain: Low Risk (03/27/2022) [facility] Overall Financial Resource Strain (CARDIA) Difficulty of Paying Living Expenses: Not hard at all Food Insecurity: No Food Insecurity (10/27/2022) Received from [facility] Hunger Screening Within the past 12 months we worried whether our food would run out before we got money to buy more.: Never True Within the past 12 months the food we bought just didn't last and we didn't have money to get more.: Never True Transportation Needs: Unknown (03/27/2022) [facility] PRAPARE - Transportation Lack of Transportation (Medical): Not on file Lack of Transportation (Non-Medical): No Physical Activity: Not on file Stress: Not on file Social Connections: Not on file Intimate Partner Violence: Not on file Housing Stability: Low Risk (10/27/2022) Received from [facility], [facility] Housing Instability Are you worried or concerned that in the next two months you may not have stable housing that you own, rent or stay in as a part of a household?: No No family history on file. Physical Exam There were no vitals taken for this visit. Musculoskeletal Ortho spine musculoskeletal examination: Alignment spine: normal Tenderness: lumbar paraspinal Range of motion Cervical spine: normal Range of motion lumbar spine: limited Neurological Biceps strength: 5 Wrist extension: 5 Triceps strength: 5 Finger flexor: 5 Finger abduction strength: 5 Flexion at the hip strength: 5 Quadriceps strength: 5 Tibialis anterior strength: 5 Plantar flexion strength: 5 Extensor Hallicis Longus strength: 5 Sensory Exam: intact Straight leg raising: Negative DTR/ Pathologic reflexes Biceps reflex- 2 Brachioradialis reflex- 2 Triceps reflex- 2 Patellar reflex- 2 Achilles reflex- 2 Babinski- negative Diana reflex: Absent Gait and station Gait: Normal Images: I, Dr. Caden Amanda, personally reviewed the images and my personal interpretation are: X ray and MRI grade 1 spondylolisthesis, with spinal canal and foramina stenosis Assessment and Plan 63 years presents with low back pain Explained the clinical and radiological findings with the patient and discussed management options. Recommended PT [facility] 12-24-2023 Note Procedure: Renal son ogram. Technique: Real-time grayscale and color flow Doppler imaging of the kidneys. Still images were reviewed. Clinical Information: 63-year-old female with kidney stone and abdominal pain. Comparison: 12/25/2022 and 11/09/2022. Findings: Right kidney: Echogenicity: Normal. Cysts/masses: Few, 1.2 cm and smaller, probably benign cysts. Calculi: None. Pelvicalyceal dilatation: None. Size: 10.83 x 5.79 x 6.04 cm. Cortical thickness: 1.26 cm. Left kidney: Echogenicity: Normal. Cysts/masses: Few, 1.99 cm and smaller, probably benign parapelvic cysts. Calculi: None. Pelvicalyceal dilatation: None. Size: 11.29 x 5.77 x 5.86 cm. Cortical thickness: 1.16 cm. IMPRESSION: Probably benign bilateral renal cysts. Final Dictated by: Herve Engle MD Dictated DT/TM: 12/24/2023 2:54 pm Signed by: Herve Engle MD Signed (Electronic Signature): 12/24/2023 3:00 pm (If Report Is Signed, Electronically Signed in Other Vendor System) [facility] 12-08-2023 Note PROCEDURE: Right L4- 5, L5-S1 transforaminal epidural steroid injection under 6 seconds fluoroscopic guidance. Physician: Griffin Cordero M.D. PRE- AND POSTOPERATIVE DIAGNOSES: Pain secondary to lumbar spinal stenosis with neurogenic claudication. SOLUTION USED: 80 mg Kenalog, 100mcg Clonidine, 1 mL 2% preservative free lidocaine, 1 mL 0.9% normal saline, 1 mL 0.25% preservative free Marcaine. COMPLICATIONS: None. EBL: None IMPLANTS: None. ASSISTANTS: None. SAMPLES TAKEN: None ANTIBIOTICS: None. ANESTHESIA: Minimal Sedation, in the form of an MKO (Midazolam/Ketamine/Ondansetron) Melt x2, will be utilized during the procedure for patient comfort. The patient's Mallampati score is 2. The patient's ASA status is 2. PROCEDURE DESCRIPTION: After informed consent was obtained, the patient was brought to the operating room and was placed in the prone position. Standard monitoring was applied. The skin overlying the area was prepped and draped in standard sterile fashion. A 25-gauge spinal needle was inserted through the skin and directed toward the right L4-5, L5-S1 neural foramen under fluoroscopic guidance. Radiopaque contrast dye 0.3 mL was injected and appropriate epidural distribution was established without intravascular or intrathecal spread. Subsequently, 1 mL of the corticosteroid and local anesthetic solution was injected. The needle was removed. The patient was then turned supine onto the gurney and transferred to the recovery area in stable condition, to be discharged home after meeting criteria and follow up as per treatment plan. This document serves as a record of the services and decisions personally performed and made by the attending provider. It was created on his/her behalf by a trained medical anthropologist. The creation of this document is based on the provider?s statements to the medical anthropologist. Electronically signed by Griffin Cordero MD 12/08/23 08:35 EDT Electronically signed by Aida Tapia 12/08/2023 08:27 EDT [facility] 12-08-2023 Note History of Present I llness CHIEF COMPLAINT: Back pain HISTORY OF PRESENT ILLNESS: Debilitating spinal pain which worsens with nerve root tensioning failing conservative measures markedly impairing function indicating the appropriateness for transforaminal epidural steroid blockade. PHYSICAL EXAM: HEENT: Normocephalic, atraumatic. RESPIRATIONS: Unlabored, clear. CARDIOVASCULAR: Regular rate, rhythm. ABDOMEN: Soft nontender MUSCULOSKELETAL: Pain that does re-create nerve root tensioning. REVIEW OF SYSTEMS: Brief review of systems was conducted. Complaints are noncontributory for cauda equina or myelopathic complaints, fever chills or sweats or unintended weight loss or gain. ASSESSMENT: Lumbar spinal stenosis with neurogenic claudication. PLAN: Neurogenic discomfort secondary to disc and spondylitic reactivity precipitating neural foraminal narrowing and lateral recess stenosis. For complaints that have failed conservative measures, candidacy has been established for epidural steroid blockade transforaminal approach for diagnostic and potential therapeutic benefit. Risks benefits alternatives have been discussed, we agree to proceed. Physical Exam Vitals & Measurements HR: 72 (Peripheral) RR: 16 BP: 119/76 SpO2: 99% HT: 172 cm WT: 75 kg Additional Vitals No qualifying data available. This document serves as a record of the services and decisions personally performed and made by the attending provider. It was created on his/her behalf by a trained medical anthropologist. The creation of this document is based on the provider?s statements to the medical anthropologist. 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), with omentectomy including salpingo-oophorectomy, unilateral or bilateral, when performed Injection of hip joint Colonoscopy [facility] (2006) Total replacement of right hip joint (10/26/2022) Cystoscopy Ureteral Stent Insertion (Right) (11/24/2022) Cystoscopy Retrograde Pyelogram (Right) (11/24/2022) Lithotripsy Laser (Right) (11/24/2022) Ureteroscopy (Right) (11/24/2022) Lumbar/Sacral Dorsal Medial Branch Block (Bilateral) (06/28/2023) Lumbar/Sacral Dorsal Medial Branch Block (Bilateral) (07/21/2023) Lumbar Radiofrequency Ablation (Bilateral) (08/05/2023) Sacroiliac Joint Injection (Bilateral) (10/18/2023) Medications Inpatient No active inpatient medications Home BACLOFEN 5MG TAB CeleBREX 200 mg oral capsule, 200 mg= 1 caps, Oral, BID multivitamin, 1 tabs Allergies Demerol (Vomit) Social History Alcohol Never 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 Exercise Home/Environment Lives with AUGUSTA DÍAZ. 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 Sleeping concerns: No. Substance Abuse Denies All Tobacco Never (less than 100 in lifetime) Use:. Family History Cancer: Mother and Grandmother (M). Pancreas cancer: Father. Prostate cancer: Father. Health Status Family Member(s) Immunizations Vaccine Date Status SARS-CoV-2 (COVID-19) mRNA-1273 vaccine 03/29/2022 Given Comments : Original Free text Vaccine : SARS-CoV-2 (COVID-19) mRNA-1273 vaccine / Moderna Lab Results Microbiology - Current Encounter No qualifying data available. Electronically signed by Griffin Cordero MD 12/08/23 07:59 EDT Electronically signed by Aida Tapia 12/08/2023 07:38 EDT [facility] 12-02-2023 Note Chief Complaint: Pro gressive low back and radicular pain right lower extremity. Weakness right lower extremity, fell 2 times HPI When did this problem begin: Long time Timing/frequency of occurrence: Constant Pain description: dull ache Pain severity: 10 Radicular pain: right lower extremity Numbness/tingling: right leg Pain is getting: gradually worsening Weakness: right lower extremity, fell 2 times What improves symptoms: Rest What makes symptoms worse: Activity Gait disturbance: yes, fell, limping Fine hand dexterity problem: No Previous treatment for this problem: PT and multiple spine injections did not give relief ROS Constitutional: Fatigue: No Weight loss: No Fever: No Chills: No No past surgical history on file. No past medical history on file. No past surgical history on file. Not on File No current outpatient medications on file. Social History Socioeconomic History Marital status: Single Spouse name: Not on file Number of children: Not on file Years of education: Not on file Highest education level: Not on file Occupational History Not on file Tobacco Use Smoking status: Not on file Smokeless tobacco: Not on file Substance and Sexual Activity Alcohol use: Not on file Drug use: Not on file Sexual activity: Not on file Other Topics Concern Not on file Social History Narrative Not on file Social Determinants of Health Financial Resource Strain: Not on file Food Insecurity: Not on file Transportation Needs: Not on file Physical Activity: Not on file Stress: Not on file Social Connections: Not on file Intimate Partner Violence: Not on file Housing Stability: Not on file No family history on file. Physical Exam There were no vitals taken for this visit. Musculoskeletal Ortho spine musculoskeletal examination: Alignment spine: normal Tenderness: lumbar midline and paraspinal Range of motion Cervical spine: normal Range of motion lumbar spine: limited, pain with extension Neurological Biceps strength: 5 Wrist extension: 5 Triceps strength: 5 Finger flexor: 5 Finger abduction strength: 5 Flexion at the hip strength: 5 Quadriceps strength: 5 Tibialis anterior strength: 4 right side Plantar flexion strength: 5 Extensor Hallicis Longus strength: 4 right side Sensory Exam: intact Straight leg raising: Positive 40 degrees right side DTR/ Pathologic reflexes Biceps reflex- 2 Brachioradialis reflex- 2 Triceps reflex- 2 Patellar reflex- 2 Achilles reflex- 2 Babinski- negative Diana reflex: Absent Gait and station Gait: antalgic Images: I, Dr. Caden Amanda, personally reviewed the images and my personal interpretation are: X ray and MRI grade 1 spondylolisthesis, with spinal canal and foramina stenosis Assessment and Plan 63 years presents with low back and radicular pain right lower extremity Weakness right lower extremity, fell 2 times PT and multiple spine injections did not give relief X ray and MRI grade 1 spondylolisthesis, with spinal canal and foramina stenosis Explained the clinical and radiological findings with the patient and discussed management options. Recommended Patient had conservative management including physical therapy and spine injections which did not give sustained relief. Due to severity of the patient symptoms affecting daily activities and quality of life and failure of conservative management to give sustained relief, patient is keen on surgical management. Spinal fusion is indicated due to after decompression of the foramen. The spine will become unstable therefore a fusion will be necessary. Preoperative Diagnosis: L 4-5 grade I spondylolisthesis with foramina stenosis and L5 radiculopathy (ICD-10 M43.16, M99.53, M54.16). Operation 1. L 4-5posterior lumbar spine decompression (52631). 2. L 4-5 posterolateral fusion using autograft, crushed cancellous allograft (21228,). 3. L 4-5 instrumentation using [employer] system from [employer] (69163). 4. Local bone autograft harvesting and use of crush cancellous allograft (43688, 04463). 5. Use of intraoperative fluoroscopy (28437). The risks and benefits of surgical management were discussed with the patient. Referral to PCP for preoperative medical clearance [facility] 10-18-2023 Note PROCEDURE: Bilateral sacroiliac joint injection under 6 seconds fluoroscopic guidance. Physician: Griffin Cordero M.D. PREOP/POSTOP DIAGNOSIS: Pain secondary to bilateral sacroiliac joint pain. SOLUTION USED: Marcaine 0.25% plus Kenalog 80 mg, total of 2 mL. COMPLICATIONS: None. EBL: None IMPLANTS: None. ASSISTANTS: None. SAMPLES TAKEN: None ANTIBIOTICS: None. FLUIDS: None ANESTHESIA: Local. PROCEDURE: After informed consent was obtained, the patient brought to the OR and placed in the prone position. The skin overlying the area was prepped and draped in sterile fashion using alcohol, after which a 25 gauge needle was used to access the indicated sacroiliac joint under fluoroscopic guidance. Radiopaque contrast dye was injected to show adequate intra-articular placement. After encountering the same we instilled 2 mL of solution into the bilateral sacroiliac joint. Postoperatively, needles were removed. The patient tolerated the procedure well and was transferred to recovery area in stable condition, to be discharged home after meeting criteria. Follow up as per the treatment plan. This document serves as a record of the services and decisions personally performed and made by the attending provider. It was created on his/her behalf by a trained medical anthropologist. The creation of this document is based on the provider?s statements to the medical anthropologist. Electronically signed by Griffin Cordero MD 10/18/23 11:17 EDT Electronically signed by Regina Aida L 10/18/2023 10:42 EDT [facility] 10-18-2023 Note History of Present I llness CHIEF COMPLAINT: Lumbosacral pain HISTORY OF PRESENT ILLNESS: Debilitating spinal pain which worsens with Sam's and Gaenslen's maneuvers. PHYSICAL EXAM: HEENT: Normocephalic, atraumatic. RESPIRATIONS: Unlabored, clear. CARDIOVASCULAR: Regular rate, rhythm. ABDOMEN: Soft nontender MUSCULOSKELETAL: Pain that does re-create with Sam's maneuver. REVIEW OF SYSTEMS: Brief review of systems was conducted. Complaints are noncontributory for cauda equina or myelopathic complaints, fever chills or sweats or unintended weight loss or gain. ASSESSMENT: Bilateral Sacroiliac joint pain PLAN: Debilitating lumbosacral pain, markedly impairing function with symptomatology that reproduces with Gaenslen's maneuver as well as Sam's testing. For symptomatology that re-creates with a sacral iliac joint palpation their candidacy is formally established for a diagnostic and potentially therapeutic intervention. Physical Exam Vitals & Measurements HR: 78 (Peripheral) RR: 16 BP: 124/77 SpO2: 98% HT: 172 cm WT: 75 kg Additional Vitals No qualifying data available. This document serves as a record of the services and decisions personally performed and made by the attending provider. It was created on his/her behalf by a trained medical anthropologist. The creation of this document is based on the provider?s statements to the medical anthropologist. Problem List/Past Medical History Ongoing Arthritis History of kidney stones Low back pain Renal cyst Historical No qualifying data Procedure/Surgical History Entire gallbladder Laparoscopy, surgical, total hysterectomy for resection of malignancy (tumor debulking), with omentectomy including salpingo-oophorectomy, unilateral or bilateral, when performed Injection of hip joint Colonoscopy [facility] (2006) Total replacement of right hip joint (10/26/2022) Cystoscopy Ureteral Stent Insertion (Right) (11/24/2022) Cystoscopy Retrograde Pyelogram (Right) (11/24/2022) Lithotripsy Laser (Right) (11/24/2022) Ureteroscopy (Right) (11/24/2022) Lumbar/Sacral Dorsal Medial Branch Block (Bilateral) (06/28/2023) Lumbar/Sacral Dorsal Medial Branch Block (Bilateral) (07/21/2023) Lumbar Radiofrequency Ablation (Bilateral) (08/05/2023) Medications Inpatient No active inpatient medications Home BACLOFEN 5MG TAB CeleBREX 200 mg oral capsule, 200 mg= 1 caps, Oral, BID multivitamin, 1 tabs Allergies Demerol (Vomit) Social History Alcohol Never 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 Exercise Home/Environment Lives with AUGUSTA DÍAZ. 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 Sleeping concerns: No. Substance Abuse Denies All Tobacco Never (less than 100 in lifetime) Use:. Family History Cancer: Mother and Grandmother (M). Pancreas cancer: Father. Prostate cancer: Father. Health Status Family Member(s) Immunizations Vaccine Date Status SARS-CoV-2 (COVID-19) mRNA-1273 vaccine 03/29/2022 Given Comments : Original Free text Vaccine : SARS-CoV-2 (COVID-19) mRNA-1273 vaccine / Moderna Lab Results Microbiology - Current Encounter No qualifying data available. Electronically signed by Griffin Cordero MD 10/18/23 10:08 EDT Electronically signed by Aida Tapia 10/18/2023 10:03 EDT [facility] 08-05-2023 Note PROCEDURE: Radiofreq uency ablation of the bilateral L4-5, L5-S1 dorsal medial rami under fluoroscopic guidance. Physician: Griffin Cordero M.D. PRE- AND POSTOPERATIVE DIAGNOSES: Lumbar spondylosis without myelopathy. COMPLICATIONS: None. ANESTHESIA: Minimal Sedation, in the form of an MKO (Midazolam/Ketamine/Ondansetron) Melt x2, will be utilized during the procedure for patient comfort. The patient's Mallampati score is 2. The patient's ASA status is 3. SOLUTION Marcaine 0.25% 3ml with Kenalog 80mg PROCEDURE DESCRIPTION: After informed consent, the patient was brought to the OR and placed in the prone position. The skin overlying the area was prepped and draped in standard sterile fashion. A 25-gauge needle was used to raise a skin wheal with 2% lidocaine over the initial DMR, which was identified under fluoroscopy. Subsequently, a radiofrequency needle with a 10 mm active tip was inserted through the anesthetized area and directed toward the first DMR under fluoroscopic guidance. After encountering the same, we had positive sensory stimulation at 0.5 mA and negative motor stimulation at 2.5 mA. Thus, two lesions were created at this level, which were conducted at 80?C for 90 seconds. This was repeated in a similar fashion on the remaining indicated levels. Post lesioning we instilled 1 mL from a 5 mL solution of Marcaine 0.25% and Kenalog 80 mg. The needles were then removed. The patient was turned supine onto the gurney and transferred to the recovery area in stable condition, to be discharged home after meeting criteria and follow up as per treatment plan. This document serves as a record of the services and decisions personally performed and made by the attending provider. It was created on his/her behalf by a trained medical anthropologist. The creation of this document is based on the provider?s statements to the medical anthropologist. Electronically signed by Griffin Cordero MD 08/05/23 12:46 EDT Electronically signed by Aida Tapia 08/05/2023 10:36 EDT [facility] 08-05-2023 Note History of Present I llness CHIEF COMPLAINT: Low Back pain HISTORY OF PRESENT ILLNESS: Debilitating spinal pain which worsens with facet loading maneuvers. The patient's axial symptoms, without evidence of nerve compression, have failed physical and medical measures. PHYSICAL EXAM: HEENT: Normocephalic, atraumatic. RESPIRATIONS: Unlabored ABDOMEN: Soft nontender MUSCULOSKELETAL: Pain that does re-create with lumbar loading. REVIEW OF SYSTEMS: Brief review of systems was conducted. Complaints are noncontributory for cauda equina or myelopathic complaints, fever chills or sweats or unintended weight loss or gain. ASSESSMENT: Lumbar spondylosis without myelopathy. PLAN: Debilitating mechanical pain does worsen with facet loading maneuvers. For symptomatology that has failed conservative measures and did reveal an 80% reduction in complaints after two diagnostic joint nerve blockade with a baseline return 120 minutes post procedure meets criteria for rhizotomy therapy in attempt to improve with quality and function. Risks benefits and alternatives have been discussed, we agree to proceed. Physical Exam Vitals & Measurements HR: 89 (Peripheral) RR: 16 BP: 144/84 SpO2: 98% HT: 172 cm WT: 72 kg Additional Vitals No qualifying data available. This document serves as a record of the services and decisions personally performed and made by the attending provider. It was created on his/her behalf by a trained medical anthropologist. The creation of this document is based on the provider?s statements to the medical anthropologist. Problem List/Past Medical History Ongoing Arthritis History of kidney stones Low back pain Renal cyst Historical No qualifying data Procedure/Surgical History Entire gallbladder Laparoscopy, surgical, total hysterectomy for resection of malignancy (tumor debulking), with omentectomy including salpingo-oophorectomy, unilateral or bilateral, when performed Injection of hip joint Colonoscopy [facility] (2006) Total replacement of right hip joint (10/26/2022) Cystoscopy Ureteral Stent Insertion (Right) (11/24/2022) Cystoscopy Retrograde Pyelogram (Right) (11/24/2022) Lithotripsy Laser (Right) (11/24/2022) Ureteroscopy (Right) (11/24/2022) Lumbar/Sacral Dorsal Medial Branch Block (Bilateral) (06/28/2023) Lumbar/Sacral Dorsal Medial Branch Block (Bilateral) (07/21/2023) Medications Inpatient MKO Alex, 2 tabs, SL, Once Home CeleBREX 200 mg oral capsule, 200 mg= 1 caps, Oral, BID cyclobenzaprine 10 mg oral tablet, 30 mg= 3 tabs, Oral, HS (at bedtime) multivitamin, 1 tabs Allergies Demerol (Vomit) Social History Alcohol Never 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 Exercise Home/Environment Lives with AUGUSTA DÍAZ. 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 Sleeping concerns: No. Substance Abuse Denies All Tobacco Never (less than 100 in lifetime) Use:. Family History Cancer: Mother and Grandmother (M). Pancreas cancer: Father. Prostate cancer: Father. Health Status Family Member(s) Immunizations Vaccine Date Status SARS-CoV-2 (COVID-19) mRNA-1273 vaccine 03/29/2022 Given Comments : Original Free text Vaccine : SARS-CoV-2 (COVID-19) mRNA-1273 vaccine / Moderna Lab Results Microbiology - Current Encounter No qualifying data available. Electronically signed by Griffin Cordero MD 08/05/23 09:57 EDT Electronically signed by Aida Tapia 08/05/2023 09:51 EDT [facility] 07-21-2023 Note PROCEDURE: Bilateral L4-5, L5-S1 dorsal medial branch blocks. PREOPERATIVE AND POSTOPERATIVE DIAGNOSIS: Lumbar spondylosis without myelopathy. Physician: Griffin Cordero M.D. COMPLICATIONS: None. SOLUTION USED: Marcaine 0.50% total of 4 mLs. ANESTHESIA: Local. Indications: Debilitating mechanical spinal failing physical medical measures over a six-week period within the last 3 months. For symptomatology that does re-create with spinal loading without neural compression, candidacy is established for diagnostic joint nerve blockade to establish causality and determine the usefulness of rhizotomy therapy. DESCRIPTION OF PROCEDURE: The patient was placed in prone position. The skin overlying the lumbar area was prepped with alcohol and draped. We employed fluoroscopic guidance and visualized the patient's lumbar spine in a posterior-anterior projection. We then employed a spinal needle which was inserted percutaneously towards the indicated dorsal medial rami. For each level the needle tip position was confirmed with multi-angled projections and identification of the relative anatomic landmarks. At each level, 1 mL of solution was injected and needle was withdrawn. The patient was turned back onto the gurney and taken to recovery in stable condition and allowed to emerge from conscious sedation and discharged per criteria. This document serves as a record of the services and decisions personally performed and made by the attending provider. It was created on his/her behalf by a trained medical anthropologist. The creation of this document is based on the provider?s statements to the medical anthropologist. Electronically signed by Griffin Cordero MD 07/21/23 11:10 EDT Electronically signed by Aida Tapia 07/21/2023 10:44 EDT [facility] 07-21-2023 Note History of Present I llness CHIEF COMPLAINT: Low Back pain HISTORY OF PRESENT ILLNESS: Debilitating spinal pain which worsens with facet loading maneuvers. The patient's axial symptoms, without evidence of nerve compression, have failed physical and medical measures. PHYSICAL EXAM: HEENT: Normocephalic, atraumatic. RESPIRATIONS: Unlabored ABDOMEN: Soft nontender MUSCULOSKELETAL: Pain that does re-create with lumbar loading. REVIEW OF SYSTEMS: Brief review of systems was conducted. Complaints are noncontributory for cauda equina or myelopathic complaints, fever chills or sweats or unintended weight loss or gain. ASSESSMENT: Lumbar spondylosis without myelopathy. PLAN: The patient meets criteria for a second concordant diagnostic lumbar facet joint nerve blockade for symptoms that did reveal an 80% reduction in symptoms after initial diagnostic procedure, that do worsen with loading without neural compression to establish cause and candidacy for rhizotomy therapy. Benefits risks and alternatives have been discussed, we agree to proceed. Physical Exam Vitals & Measurements HR: 80 (Peripheral) RR: 16 BP: 149/88 SpO2: 99% HT: 172 cm WT: 75 kg Additional Vitals No qualifying data available. This document serves as a record of the services and decisions personally performed and made by the attending provider. It was created on his/her behalf by a trained medical anthropologist. The creation of this document is based on the provider?s statements to the medical anthropologist. Problem List/Past Medical History Ongoing Arthritis History of kidney stones Low back pain Renal cyst Historical No qualifying data Procedure/Surgical History Entire gallbladder Laparoscopy, surgical, total hysterectomy for resection of malignancy (tumor debulking), with omentectomy including salpingo-oophorectomy, unilateral or bilateral, when performed Injection of hip joint Colonoscopy [facility] (2006) Total replacement of right hip joint (10/26/2022) Cystoscopy Ureteral Stent Insertion (Right) (11/24/2022) Cystoscopy Retrograde Pyelogram (Right) (11/24/2022) Lithotripsy Laser (Right) (11/24/2022) Ureteroscopy (Right) (11/24/2022) Lumbar/Sacral Dorsal Medial Branch Block (Bilateral) (06/28/2023) Medications Inpatient No active inpatient medications Home CeleBREX 200 mg oral capsule, 200 mg= 1 caps, Oral, BID cyclobenzaprine 10 mg oral tablet, 30 mg= 3 tabs, Oral, HS (at bedtime) multivitamin, 1 tabs Allergies Demerol (Vomit) Social History Alcohol Never 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 Exercise Home/Environment Lives with AUGUSTA DÍAZ. 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 Sleeping concerns: No. Substance Abuse Denies All Tobacco Never (less than 100 in lifetime) Use:. Family History Cancer: Mother and Grandmother (M). Pancreas cancer: Father. Prostate cancer: Father. Health Status Family Member(s) Immunizations Vaccine Date Status SARS-CoV-2 (COVID-19) mRNA-1273 vaccine 03/29/2022 Given Comments : Original Free text Vaccine : SARS-CoV-2 (COVID-19) mRNA-1273 vaccine / Moderna Lab Results Microbiology - Current Encounter No qualifying data available. Electronically signed by Griffin Cordero MD 07/21/23 10:10 EDT Electronically signed by Aida Tapia 07/21/2023 09:38 EDT [facility] 06-28-2023 Note PROCEDURE: Bilateral L4-5, L5-S1 dorsal medial branch blocks. PREOPERATIVE AND POSTOPERATIVE DIAGNOSIS: Lumbosacral spondylosis without myelopathy Physician: Griffin Cordero M.D. COMPLICATIONS: None. SOLUTION USED: Marcaine 0.50% total of 4 mLs. ANESTHESIA: Local. Indications: Debilitating mechanical spinal failing physical medical measures over a six-week period within the last 3 months. For symptomatology that does re-create with spinal loading without neural compression, candidacy is established for diagnostic joint nerve blockade to establish causality and determine the usefulness of rhizotomy therapy. DESCRIPTION OF PROCEDURE: The patient was placed in prone position. The skin overlying the lumbar area was prepped with alcohol and draped. We employed fluoroscopic guidance and visualized the patient's lumbar spine in a posterior-anterior projection. We then employed a spinal needle which was inserted percutaneously towards the indicated dorsal medial rami. For each level the needle tip position was confirmed with multi-angled projections and identification of the relative anatomic landmarks. At each level, 1 mL of solution was injected and needle was withdrawn. The patient was turned back onto the gurney and taken to recovery in stable condition and allowed to recover after which was discharged per criteria. This document serves as a record of the services and decisions personally performed and made by the attending provider. It was created on his/her behalf by a trained medical anthropologist. The creation of this document is based on the provider?s statements to the medical anthropologist. Electronically signed by Griffin Cordero MD 06/28/23 09:38 EDT Electronically signed by Oliva Lew 06/28/2023 09:32 EDT [facility] 06-28-2023 Note History of Present I llness CHIEF COMPLAINT: Low Back pain HISTORY OF PRESENT ILLNESS: Debilitating spinal pain which worsens with lumbar facet loading maneuvers. The patient's axial symptoms, without evidence of nerve compression, have failed physical and medical measures. PHYSICAL EXAM: HEENT: Normocephalic, atraumatic. RESPIRATIONS: Unlabored ABDOMEN: Soft nontender MUSCULOSKELETAL: Pain that does re-create with lumbar loading. REVIEW OF SYSTEMS: Brief review of systems was conducted. Complaints are noncontributory for cauda equina or myelopathic complaints, fever chills or sweats or unintended weight loss or gain. ASSESSMENT: Lumbosacral spondylosis without myelopathy PLAN: The patient meets criteria for diagnostic lumbar facet joint nerve blockade for symptoms that do worsen with loading without neural compression to establish cause and candidacy for rhizotomy therapy. Benefits risks and alternatives have been discussed, we agree to proceed. Physical Exam Vitals & Measurements T: 36.4 ?C (Temporal Artery) HR: 92 (Peripheral) RR: 16 BP: 144/89 SpO2: 99% HT: 172 cm WT: 75 kg Additional Vitals No qualifying data available. This document serves as a record of the services and decisions personally performed and made by the attending provider. It was created on his/her behalf by a trained medical anthropologist. The creation of this document is based on the provider?s statements to the medical anthropologist. Problem List/Past Medical History Ongoing Arthritis History of kidney stones Low back pain Renal cyst Historical No qualifying data Procedure/Surgical History Entire gallbladder Laparoscopy, surgical, total hysterectomy for resection of malignancy (tumor debulking), with omentectomy including salpingo-oophorectomy, unilateral or bilateral, when performed Injection of hip joint Colonoscopy [facility] (2006) Total replacement of right hip joint (10/26/2022) Cystoscopy Ureteral Stent Insertion (Right) (11/24/2022) Cystoscopy Retrograde Pyelogram (Right) (11/24/2022) Lithotripsy Laser (Right) (11/24/2022) Ureteroscopy (Right) (11/24/2022) Medications Inpatient No active inpatient medications Home CeleBREX 200 mg oral capsule, 200 mg= 1 caps, Oral, BID cyclobenzaprine 10 mg oral tablet, 30 mg= 3 tabs, Oral, HS (at bedtime) multivitamin, 1 tabs Allergies Demerol (Vomit) Social History Alcohol Never 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 Exercise Home/Environment Lives with AUGUSTA DÍAZ. 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 Sleeping concerns: No. Substance Abuse Denies All Tobacco Never (less than 100 in lifetime) Use:. Family History Cancer: Mother and Grandmother (M). Pancreas cancer: Father. Prostate cancer: Father. Health Status Family Member(s) Immunizations Vaccine Date Status SARS-CoV-2 (COVID-19) mRNA-1273 vaccine 03/29/2022 Given Comments : Original Free text Vaccine : SARS-CoV-2 (COVID-19) mRNA-1273 vaccine / Moderna Lab Results Microbiology - Current Encounter No qualifying data available. Electronically signed by Griffin Cordero MD 06/28/23 09:38 EDT Electronically signed by LouannOliva 06/28/2023 09:14 EDT [facility] 04-06-2022 Hospital Discharge instructions Francia Arzola DO - 04/06/2022 9:18 AM EST Take the medications as prescribed. Follow-up closely with your family doctor in the next couple days. Return to the emergency department if symptoms get worse. You can certainly do warm water gargles to help with soothing her throat. If you have any concerns or questions regarding your care today, please discuss with your nurse or physician prior to leaving the emergency department. Thank you for allowing us to take care of you at [facility]. In the next few days you may receive a survey by mail or e-mail asking about the care you received during this visit. Please complete this if you are able, as this feedback helps us provide the best care possible. The following attachments cannot be sent through Care Everywhere.Sore Throat (Ecuadorean)documented in this encounter [employer] [facility] Work Phone: 03-26-2021 Note HNO ID: [id number] Author: Letty Taylor MD Service: ? Author Type: Physician Type: Progress Notes Filed: 03/26/2021 3:48 PM Note Text: VIRTUAL VISIT PROGRESS NOTE This is a virtual visit using [employer] video visit. It required patient-provider interaction for the medical decision making as documented below. Susy Kohler is a 61 year old female seen for MRI review of the right hip. No change in symptoms or interim trauma. HISTORY REVIEWED (electronic chart updated): No past medical history on file. No past surgical history on file. No family history on file. Social History Tobacco Use - Smoking status: Not on file - Smokeless tobacco: Not on file Substance Use Topics - Alcohol use: Not on file - Drug use: Not on file No current outpatient medications on file. No current facility-administered medications for this visit. ALLERGIES Allergen Reactions - Demerol [Meperidine] Vomiting REVIEW OF SYSTEMS: PHYSICAL EXAMINATION: VIDEO EXAM: (if completed, performed via video enabled technology) No exam performed ASSESSMENT: (E50.378Q) Acetabular labrum tear, right, subsequent encounter (primary encounter diagnosis) (M16.10) Arthritis of hip PLAN: MRI reveals osteoarthritis and a labrum tear with less effusion than prior imaging. Plan for the patient as discussed. Expectations for hip arthroscopy in this scenario are reviewed. She has a large chondral defect on the posterior medial femoral head. She has had persistent pain. I believe her chances of improvement with hip arthroscopy are 60/40. Recommend conversation with referring physician to discuss hip replacement and together we can make best decision for her. She voiced understanding agreement with plan. All questions answered today. There are no Patient Instructions on file for this visit. I spent a total of 12 minutes on the date of the service which included preparing to see the patient, [id number] patient care, completing clinical documentation, obtaining and/or reviewing separately obtained history and counseling and educating the patient/family/caregiver Letty Taylor MD [facility] 03-07-2021 Note HNO ID: [id number] Author: DUDLEY Johnson) Service: Radiology Author Type: Technologist Type: Progress Notes Filed: 03/07/2021 7:34 PM Note Text: Radiology Service Progress Note PATIENT NAME: Susy Kohler DATE OF SERVICE: March 07, 2021 TIME: 7:34 PM PATIENT IDENTITY VERIFICATION COMPLETED USING TWO (2) IDENTIFIERS: Name and Date of confirmed by patient verbally. FALL SCREENING: Has the patient had 2 falls in the last year or 1 fall with injury or currently using an Ambulatory Assistive Device (Walker, Cane, Wheelchair, Crutches, etc.)? No PATIENT GENDER DATA: Female. status: : No status: NO. PATIENT RELEVANT IMPLANT DATA REVIEWED: Yes RADIOLOGY DEPARTMENT: MR; Exam(s) Completed: Lower MSK: Hip, right PERIPHERAL IV DATA: Not applicable SIGNED BY: RT Alex(R) March 07, 2021 7:34 PM [facility] 03-07-2021 History of Present illness Narrative Radiology Service Progress Note PATIENT NAME: Susy Kohler DATE OF SERVICE: March 07, 2021 TIME: 7:34 PM PATIENT IDENTITY VERIFICATION COMPLETED USING TWO (2) IDENTIFIERS: Name and Date of confirmed by patient verbally. FALL SCREENING: Has the patient had 2 falls in the last year or 1 fall with injury or currently using an Ambulatory Assistive Device (Walker, Cane, Wheelchair, Crutches, etc.)? No PATIENT GENDER DATA: Female. status: : No status: NO. PATIENT RELEVANT IMPLANT DATA REVIEWED: Yes RADIOLOGY DEPARTMENT: MR; Exam(s) Completed: Lower MSK: Hip, right PERIPHERAL IV DATA: Not applicable SIGNED BY: RT Alex(Yazan)MR March 07, 2021 7:34 PM documented in this encounter [facility] 02-26-2021 Note HNO ID: [id number] Author: Letty Taylor MD Service: ? Author Type: Physician Type: Progress Notes Filed: 02/26/2021 11:53 AM Note Text: I have reviewed the history and physical obtained by my resident or fellow. HPI explored in detail with the patient. Pt was seen by me and paez findings were confirmed. I agree with the findings as documented. I personally participated the patient's assessment and treatment recommendations. Letty Taylor MD [facility] 02-26-2021 Note HNO ID: [id number] Author: Herve Urbano MD Service: ? Author Type: Fellow Type: Progress Notes Filed: 02/26/2021 11:53 AM Note Text: DEPARTMENT OF ORTHOPAEDICS Consultation as a request of self Chief Complaint: Right hip pain HISTORY OF PRESENT ILLNESS: This is a pleasant 61 year old female, who presents today with a chief complaint of right hip pain. She has had a year of severe right hip pain. This started while she was in physical therapy for her back. Notes the pain is primarily in her groin. It is worse with activity. She had an intra-articular corticosteroid injection 6 months ago with some short-term relief. She currently has problems with most ADLs. She is unable to lie down due to her hip pain. Injury/ Trauma: Denies PAIN EVALUATION 02/26/2021 0951 Pain Level: 9 Pain Location: Hip-Right Description: Aching Duration Amount of Time: 1 Duration Units: Years Frequency: Continuous Pain location: anterior Duration of pain/ symptoms: 1 year Frequency: constant Intensity: severe Quality: sharp She Reports nocturnal pain. She denies numbness, tingling, or electric shocks. She denies popping, clicking, catching, locking, grinding, instability, buckling, or giving way. Aggravating factors: ADL's Alleviating factors: Sitting Prior Treatments: xray, MRI, physical therapy and steroid injections Hip joint injection Yes Physical therapy Yes - if yes dates: Home exercise program No if yes dates: Medications: NSAID: Yes name(s) and duration of use: Acetaminophen Yes duration of use Work Related: No Activity level: sedentary, sport/activity: none No past medical history on file. No past surgical history on file. No current outpatient medications on file. No current facility-administered medications for this visit. ALLERGIES Allergen Reactions - Demerol [Meperidine] Vomiting No family history on file. Social History Tobacco Use - Smoking status: Not on file - Smokeless tobacco: Not on file Substance Use Topics - Alcohol use: Not on file - Drug use: Not on file REVIEW OF SYSTEMS: GENERAL: No weight loss, malaise or fevers HEENT: Negative for frequent or significant headaches, No changes in hearing or vision, no nose bleeds or other nasal problems NECK: Negative for lumps, goiter, pain and significant neck swelling RESPIRATORY: Negative for cough, hemoptysis, wheezing, COPD, dyspnea or shortness of breath CARDIOVASCULAR: Negative for chest pain, leg swelling, hypertension, CHF or palpitations GI: No nausea, vomiting, or diarrhea : No history of dysuria, frequency or incontinence CLINICAL APPLICATION SPECIALIST: Negative for abnormal vaginal bleeding, abnormal vaginal discharge MUSCULOSKELETAL: Negative for joint pain or swelling, back pain or muscle pain SKIN: Negative for lesions, rash, and itching HEMATOLOGY/LYMPHOLOGY: Negative for prolonged bleeding, bruising easily or swollen nodes ENDOCRINE: Negative for cold or heat intolerance, polyuria, polydipsia and goiter RADIOGRAPHS: right AP pelvis, Le lateral and false view dated today revealed no acute processes, fractures, or dislocations. There is a cam lesion. Osseous and soft tissue structures within normal limits. X-Rays Reviewed and discussed. OTHER STUDIES: Not applicable right hip MRI brought in on a CD dated within 90 days revealed no acute processes, fractures, or dislocations. Mild degenerative changes of the hip joint. There is a hip effusion PHYSICAL EXAM: There were no vitals taken for this visit. General: Appears stated age, well built, in no apparent distress. Psychiatric: Mood and affect appropriate. Alert and oriented x 3 without evidence of abnormal respiratory effort. Musculoskeletal Exam: Gait antalgic, Posture: stooped. Exam: Right Left Single Leg Trendelenburg Unable to perform Unable to perform Hip flexion 110 110 IR 20 20 ER 50 50 Anterior impingement positive positive Dynamic labral stress positive negative KEM positive negative Posterior Impingement negative negative WILLIAM negative negative Strength Right Left Supine HF 4/5 4+/5 Upright HF 4/5 4+/5 Adduction 4+/5 4+/5 Abduction 4+/5 4+/5 Tenderness with Palpation: Right Left Greater Troch Negative Negative Gluteus Medius Negative Negative Piriformis Negative Negative PROCEDURE: Not applicable IMPRESSION: 1. right Hip Osteoarthritis. She does appear to have a rapidly progressive arthritic hip picture. Her previous MRI in December 2020 is of poor quality and does not delineate cartilage and labrum very well.. However it does show an effusion which is concerning. PLAN: 1. Medication: None. 2. Test(s)/Imaging/Referral(s): MRI on a 3T magnet to better delineate cartilage and labrum. 3. Intervention: None. 4. Follow-up: Following above. Herve Urbano MD Sports Medicine/Orthopaedic Surgery [facility] 02-26-2021 Note HNO ID: [id number] Author: RT Aguila(R) Service: Radiology Author Type: Technologist Type: Progress Notes Filed: 02/26/2021 9:24 AM Note Text: Radiology Service Progress Note PATIENT NAME: Susy Kohler DATE OF SERVICE: February 26, 2021 TIME: 9:23 AM PATIENT IDENTITY VERIFICATION COMPLETED USING TWO (2) IDENTIFIERS: Name and Date of confirmed by patient verbally. FALL SCREENING: Has the patient had 2 falls in the last year or 1 fall with injury or currently using an Ambulatory Assistive Device (Walker, Cane, Wheelchair, Crutches, etc.)? No PATIENT GENDER DATA: Female. status: : No status: NO. PATIENT RELEVANT IMPLANT DATA REVIEWED: Yes RADIOLOGY DEPARTMENT: General X-ray: Exam(s) Completed: Pelvis X-Ray: Pelvis with Hip Right PERIPHERAL IV DATA: Not applicable SIGNED BY: RT Aguila(R) February 26, 2021 9:23 AM [facility] 02-26-2021 History of Present illness Narrative Radiology Service Progress Note PATIENT NAME: Susy Kohler DATE OF SERVICE: February 26, 2021 TIME: 9:23 AM PATIENT IDENTITY VERIFICATION COMPLETED USING TWO (2) IDENTIFIERS: Name and Date of confirmed by patient verbally. FALL SCREENING: Has the patient had 2 falls in the last year or 1 fall with injury or currently using an Ambulatory Assistive Device (Walker, Cane, Wheelchair, Crutches, etc.)? No PATIENT GENDER DATA: Female. status: : No status: NO. PATIENT RELEVANT IMPLANT DATA REVIEWED: Yes RADIOLOGY DEPARTMENT: General X-ray: Exam(s) Completed: Pelvis X-Ray: Pelvis with Hip Right PERIPHERAL IV DATA: Not applicable SIGNED BY: RT Aguila(R) February 26, 2021 9:23 AM documented in this encounter [facility] 10-30-2020 Hospital Discharge instructions Anu Schaefer MD - 10/30/2020 Take Decadron as directed until complete. Make sure that you stay well-hydrated. Consider vitamin C and zinc supplements. Tylenol as needed for headaches or fevers. Seek medical attention immediately if you develop any worsening symptoms chest pain shortness of breath or any other acute concerns. The following attachments cannot be sent through Care Everywhere.Coronavirus Disease (COVID-19): Isolation (Ecuadorean)Headache (Ecuadorean)documented in this encounter [facility] Phone: Evaluation note Diagnosis COVID-19- Primary Nonintractable headache, unspecified chronicity pattern, unspecified headache type documented in this encounter [facility] Phone: evaluation note* Diagnosis Pain- Primary Generalized pain [facility]No assessment information availableK[facility] Phone: Evaluation note* Diagnosis Acute pharyngitis, unspecified etiology- Primary documented in this encounter [facility] Work Phone: evaluation note* Diagnosis Pain in hip Pain in joint, pelvic region and thigh documented in this encounter [facility] note* Diagnosis Pain Generalized pain documented in this encounter [facility] note* Diagnosis Encounter for general adult medical examination without abnormal findings [facility] Diagnosis Encounter for other preprocedural examination [facility]* Diagnosis Migraine, unspecified, not intractable, without status migrainosus [facility]ructionsNot on filedocumented in this encounter [facility] for referral (narrative)* Diagnostic Procedure Only (Routine) - Pending Review Specialty Diagnoses / Procedures Referred By Contac t Referred To Contact XR IMAGING Diagnoses Pain Procedures XR HIP GENERAL 3V PELV/AP/LAT RIGHT RADEX HIP UNILATERAL WITH PELVIS 2-3 VIEWS Letty Taylor MD [address] [place] [id number] Xr Imaging Referral ID Status Reason Start Date Expiration Date Visits Requested Visits Authorized [id number] Pending Review Auto-Generat ed Referral 02/13/2021 03/14/2022 1 1 [facility] for referral (narrative)* Diagnostic Procedure Only (Routine) - Closed Specialty Diagnoses / Procedures Referred By Contac t Referred To Contact XR IMAGING Diagnoses Pain Procedures XR HIP GENERAL 3V PELV/AP/LAT RIGHT RADEX HIP UNILATERAL WITH PELVIS 2-3 VIEWS Letty Taylor MD [address] [place] [address] [place] [address] Referral ID Status Reason Start Date Expiration Date V isits Requested Visits Authorized [id number] Closed Auto-Generate d Referral 02/26/2021 02/07/2022 1 1 [facility] for visit Narrative* Diagnostic Procedure Only (Routine) - Closed Specialty Diagnoses / Procedures Referred By Brayanac t Referred To Contact XR IMAGING Diagnoses Pain Procedures XR HIP GENERAL 3V PELV/AP/LAT RIGHT RADEX HIP UNILATERAL WITH PELVIS 2-3 VIEWS Letty Taylor MD [address] [place] [address] [place] [address] Referral ID Status Reason Start Date Expiration Date V isits Requested Visits Authorized [id number] Closed Auto-Generate d Referral 02/26/2021 02/07/2022 1 1 [facility] Assessments Diagnosis Wellness examination Advance Directives No Advanced Directives Records FoundDocuments on File Type Date Recorded 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 Advance Directives and Living Will Power of Video Machines Mechanic Documents on File Type Date Recorded 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 ACP-Advance Directive ACP-Power of Video Machines Mechanic Latest Code Status on File Code Status Date Activated Date Inactivated Comments Full Code 10/26/2022 3:21 PM 10/27/2022 6:32 PM Date Activated Date Inactivated Comments 10/26/2022 3:21 PM 10/27/2022 6:32 PM Summary Purpose Family History No Family History Records FoundNo Family History Records FoundNo Family History Records FoundNo Family History Records FoundNo Family History Records FoundNo Family History Records FoundNo Family History Records FoundNo Family History Records FoundNo Family History Records Found Reason for Referral Specialty Diagnoses / Procedures Referred By Anita t Referred To Contact MR IMAGING Diagnoses Pain in hip Procedures MRI HIP WO IVCON RT MRI ANY JT LOWER EXTREM W/O CONTRAST MATRL Letty Taylor MD [address] [place] [address] [place] [address] Referral ID Status Reason Start Date Expiration Date V isits Requested Visits Authorized [id number] Closed Clearance Not Met - Admin/Chairm an/Director Advise to Postpone/Res chedule or Not Proceed 03/07/2021 02/07/2022 1 1 Additional Source Comments Reason for Visit (unrecogniz ed section and content) Reason Comments Headache pt states onset x 2 days Back Pain pt states chronic lo w back pain, dx with arthritis per Dr. Garcia Reason Comments Pharyngitis Patient reports sore throat since Wednesday, states she just can't take it anymore. Reason Comments Radiology MRI Specialty Diagnoses / Procedures Referred By Anita t Referred To Contact MR IMAGING Diagnoses Pain in hip Procedures MRI HIP WO IVCON RT MRI ANY JT LOWER EXTREM W/O CONTRAST JAVANL Letty Taylor MD [address] [place] [address] [place] [address] Referral ID Status Reason Start Date Expiration Date V isits Requested Visits Authorized [id number] Closed Clearance Not Met - Admin/Chairm an/Director Advise to Postpone/Res chedule or Not Proceed 03/07/2021 02/07/2022 1 1 Ordered Prescriptions (unrec ognized section and content) Prescription Sig Dispensed Refills Start Date End Da te dexamethasone (DECADRON) 6 MG tablet Take 1 tablet by mouth 2 times daily (with meals) for 10 days 20 tablet 0 10/30/2020 11/09/2020 Prescription Sig Dispensed Refills Start Date End Da te predniSONE (DELTASONE) 20 MG tablet Take 2 tablets by mouth daily for 5 days 10 tablet 0 04/06/2022 04/11/2022 amoxicillin-clavulanate (AUGMENTIN) 875-125 MG per tablet Take 1 tablet by mouth 2 times daily for 10 days 20 tablet 0 04/06/2022 04/16/2022 Scheduled Active and Recently Administ ered Medications (unrecognized section and content) Medication Order 10/28/2020 10/29/2020 10/30/2020 0.9 % sodium chloride bolus (COMPLETED) 1,000 mL (14.1 mL/kg), IntraVENous, at 1,000 mL/hr, Administer over 1 Hours, ONCE, On Wed10/30/20 at 1515, For 1 dose 1542 (New Bag - Prov ider: Marlon Gaytan RN)1643 (Stopped - Provider: Marlon Gaytan RN) diphenhydrAMINE (BENADRYL) injection 25 mg (COMPLETED) 25 mg, IntraVENous, ONCE, On Wed10/30/20 at 1515, For 1 dose 1547 (Given - Provid er: Marlon Gaytan RN) ketorolac (TORADOL) injection 30 mg (COMPLETED) 30 mg, IntraVENous, ONCE, On Wed10/30/20 at 1515, For 1 dose, Do not administer for more than 5 days. 1544 (Given - Provid er: Marlon Gaytan RN) promethazine (PHENERGAN) injection 12.5 mg (COMPLETED) 12.5 mg, IntraVENous, ONCE, On Wed10/30/20 at 1515, For 1 dose, Recommended route is IM. For IV administration, dilute to 10ml with normal saline. Must be administered over at least 10 minutes. 1544 (Given - Provid er: Marlon Gaytan RN) No Frequency Medication Order 10/28/2020 10/29/2020 10/30/2020 sodium chloride (PF) 0.9 % injection (COMPLETED) Starting on Wed10/30/20 at 1532, For 1 dose, Marlon Gaytan: cabinet override 1548 (Given - Provid er: Marlon Gaytan RN) Source Comments (unrecognize d section and content) In the event this informatio n is protected by the Federal Confidentiality of Alcohol and Drug Abuse Patient Records regulations: The Federal rules restrict any use of the information to criminally investigate or prosecute any alcohol or drug abuse patient.[facility] the event this information is protected by the Federal Confidentiality of Alcohol and Drug Abuse Patient Records regulations: The Federal rules restrict any use of the information to criminally investigate or prosecute any alcohol or drug abuse patient.[facility] Center[facility] the event this information is protected by the Federal Confidentiality of Alcohol and Drug Abuse Patient Records regulations: The Federal rules restrict any use of the information to criminally investigate or prosecute any alcohol or drug abuse patient.[facility] Care Teams (unrecognized sec tion and content) Turn Down Attendant Relationship Specialty Start Date End Date Patricio Castle [address] [facility] [address] [place] [address] Referring 02/03/21 Team Status: Inactive Member Role Status Dates Antonio Silva MD Attending Provider Active Turn Down Attendant Relationship Specialty Start Date End Date Jacki Alfaro MD [address] [place] [address], [facility] [place] [address] PCP - General Internal Medicine 06/08/17 Turn Down Attendant Relationship Specialty Start Date End Date Patricio Castle(Historical) Referring 02/03/21 Turn Down Attendant Relationship Specialty Start Date End Date Patricio Castle(Historical) Referring 02/03/21 Turn Down Attendant Relationship Specialty Start Date End Date No Pcp, [place] [address] PCP - General Family Medicine 12/16/21 Turn Down Attendant Relationship Specialty Start Date End Date No Pcp, [place] [address] PCP - General Family Medicine 12/16/21 Turn Down Attendant Relationship Specialty Start Date End Date No Pcp, [place] [address] PCP - General Family Medicine 12/16/21 INFORMATION SOURCE (unrecogn ized section and content) DATE CREATED AUTHOR 03/29/2021 [facility] [employer] DATE CREATED AUTHOR AUTHOR'S ORGANIZ ATION 05/01/2021 [facility] DATE CREATED AUTHOR AUTHOR'S ORGANIZ ATION 07/11/2021 [facility] DATE CREATED AUTHOR AUTHOR'S ORGANIZ ATION 11/09/2021 [facility] DATE CREATED AUTHOR AUTHOR'S ORGANIZ ATION 06/16/2022 [facility] DATE CREATED AUTHOR AUTHOR'S ORGANIZ ATION 11/02/2022 [facility] DATE CREATED AUTHOR AUTHOR'S ORGANIZ ATION 07/30/2023 [facility] DATE CREATED AUTHOR AUTHOR'S ORGANIZ ATION 01/01/2024 [facility] DATE CREATED AUTHOR AUTHOR'S ORGANIZ ATION 04/23/2024 [facility] Goals (unrecognized section and content) Goals may be documented in a n alternate section FOR RECORDS PERTAINING TO PATIENTS WHO ARE OR HAVE BEEN ENROLLED IN A CHEMICAL DEPENDENCY/SUBSTANCEABUSE PROGRAM, SOME INFORMATION MAY BE OMITTED. This clinical summary was aggregated from multiple sources. Caution should be exercised in using it in the provision of clinical care. This summary normalizes information from multiple sources, and as a consequence, information in this document may materially change the coding, format and clinical context of patient data. In addition, data may be omitted in some cases. CLINICAL DECISIONS SHOULD BE BASED ON THE PRIMARY CLINICAL RECORDS. [employer] provides no warranty or guarantee of the accuracy or completeness of information in this document.
== END 2024-04-26 06:56 | disposition home or self-care (01) ==
LOC: MAMMO 06:55
PROVIDERS: Visit Provider Obstetrics & Gynecology
DX: Z12.31 Encounter for screening mammogram for malignant neoplasm of breast (principal); Z80.8 Family history of malignant neoplasm of other organs or systems
CPT/HCPCS: 77063; 77067